=== PATIENT | male | born 1950 | race Caucasian/White ===

== ENCOUNTER 2025-02-02 03:37 | Inpatient (IN) | payer OTHER, SELFPAY ==
[2025-02-01 21:37] VITALS: BP 127/84
[2025-02-01 21:55] LABS: Hematocrit 44.6 % (39.0-52.0); Hemoglobin 16.1 g/dL (13.0-18.0); Mean Corp Hgb Conc. 36.1 g/dL (33.0-37.0); Mean Corpuscular Volume 91.6 fL (80.0-94.0); Nucleated Red Blood Cells % 0 % (-); Platelet Count 195 10^3/uL (130-400); Red Cell Dist. Width 11.9 % (11.5-14.5)
[2025-02-01 22:14] VITALS: BP 138/79; BMI 27.0
[2025-02-01 22:14] LABS: AST (SGOT) 47 U/L (17-59); Albumin 4.8 g/dl (3.5-5.0); Blood Urea Nitrogen 18 mg/dl (9-20); Carbon Dioxide 30 mmol/L (22-30); Glucose 113 mg/dl (70-99); Total Protein 7.7 g/dl (6.3-8.2); eGFR 57.65
[2025-02-01] MEDS: NSS 1000 IV (22:25)
[2025-02-01] MEDS: ZOFRAN 4 MG IV (22:27)
[2025-02-01] MEDS: DILAUDID 0.5 MG IV (22:27)
[2025-02-01 22:36] VITALS: BP 140/85
[2025-02-01 22:50] LABS: ALT (SGPT) 55 U/L (0-50); Alkaline Phosphatase 91 U/L (38-126); Chloride 106 mmol/L (98-107); Potassium 4.5 mmol/L (3.5-5.1); Sodium 139 mmol/L (135-145)
[2025-02-01 23:11] LABS: Calcium 9.8 mg/dl (8.4-10.2)
--- NOTE | 2025-02-01 23:14 | ED.GENMED ---
History of Present Illness
General
Chief Complaint: Abdominal Pain
Source: patient, spouse and previous hospital records (Hospitalization May 2020 for acute small bowel obstruction)
Exam Limitations: none
Time Seen by Provider: 02/01/25 22:00
Nursing documentation reviewed up to this point in time: agreed with
History of Present Illness
History of Present Illness:
This is a 74-year-old gentleman who resides at home with his . He has history of Crohn's disease with remote history of small bowel resection. He has prior history of small bowel obstructions perhaps 5 times in the past with previous
hospitalization here May 2020 for small bowel obstruction and most recently May 2024 while vacationing near [facility]. Thus far, small bowel obstructions resolve with NG tube, bowel rest, IV fluids and pain medication.
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 Unfortunately he ate nuts earlier today and developed generalized mid abdominal crampy pain around 12 noon today which has progressed
throughout the day, worsening with onset of nausea, dry heaves. Symptoms are quite similar to previous small bowel obstructions. Patient states he has had previous success with resolution of bowel obstructions by maintaining bowel rest and staying
at home but pain worsened throughout the day today despite home measures. He has not had a fever nor chills. He has been nauseous, dry heaves but no vomiting.
Last bowel movement was early this morning. He has not been passing gas. He denies chest pain or cough no shortness of breath.
Tonight he began to feel lightheaded, diaphoretic with near syncope shortly after arrival to the ED.
He had been maintained on Imuran for Crohn's disease but this was discontinued 1 year ago due to neutropenia. Thus far he has had no recurrence of Crohn's colitis.
Past History
Past History
ED Past Medical History: HTN, Other (Crohn's, small bowel obstruction, hepatitis, anemia, anxiety disorder) and Other (SVT)
ED Past Surgical History: Bowel resection (Small bowel resection), Cardiac and Orthopedic
Social History
Tobacco: Former smoker
Alcohol: Occasional
Drug: None
Personal:
Living: with family
Employment: Retired
Family History
Family History: Other (Noncontributory)
Phy Exam
Physical Exam
Physical Exam:
GENERAL: 74-year-old gentleman appears his stated age, awake and alert, oriented x 3, appears in moderate distress related to pain. Patient wheeled somewhat urgently into exam room 9 due to diaphoresis, near syncope and initially noted to be
moderately pale, moderately diaphoretic. Pallor and diaphoresis quickly improved with repositioning to supine. Patient remained conscious and alert.
EYE: pupils equal and reactive. anicteric
NECK: Supple, nontender, no meningismus, no significant adenopathy.
ENT: posterior pharynx is clear, oral mucosa is minimally dry. TM clear b/l, nares patent.
CARDIAC: Regular rate and rhythm. no murmur.
LUNGS: Clear breath sounds bilaterally, no acute respiratory distress, no wheezes/rales/rhonchi
ABDOMEN: Soft, mildly distended, mild to moderate generalized tenderness throughout the abdomen with moderately hypoactive bowel sounds with few scattered high-pitched tinkling bowel sounds noted. No r/g, no cvat. No palpable masses.
NEUROLOGICAL: Alert and oriented x3, no focal neuro deficits.
SKIN: Mildly diaphoretic, cool, mildly pale, skin intact. No rash.
MUSCULOSKELETAL: No C/C/E. peripheral pulses are full and equal b/l. No palpable tenderness.
PSYCH: Normal and appropriate interaction.
Course
Orders/Labs/Results
Orders:
Orders
02/01/25 21:46
Complete Blood Count/With Diff Urgent
Comprehensive Metabolic Panel Urgent
Lipase Urgent
02/01/25 22:16
Electrocardiogram (*1) Urgent
Reason for Study: Abdominal Pain
CT Abd/pelvis W Iv Cont Urgent
Comment:
Reason For Exam: severe abd pain, N-hx SBO, hx crohn's hx SB resect
EKG- Treatment ONCE
0.9% Sodium Chloride 1000 ml [Nss] 1,000 ml IV BOLUS
HYDROmorphone [Dilaudid] 0.5 mg IV NOW STA
Ondansetron Injectable [Zofran] 4 mg IV NOW STA
02/01/25 22:25
Lactic Acid Urgent
02/01/25 23:15
0.9% Sodium Chloride 1000 ml [Nss] 1,000 ml IV BOLUS
02/01/25 23:16
GI tube insertion- Treatment ONCE
02/02/25 01:45
HYDROmorphone [Dilaudid] 0.5 mg IV NOW STA
02/02/25 01:46
0.9% Sodium Chloride 1000 ml [Nss] 1,000 ml IV 250 mls/hr
HYDROmorphone [Dilaudid] 0.5 mg .ROUTE .STK-MED ONE
02/02/25 01:52
Ondansetron Injectable [Zofran] 4 mg .ROUTE .STK-MED ONE
Ondansetron Injectable [Zofran] 4 mg IV NOW STA
02/02/25 02:30
Lactic Acid Urgent
Abnormal Lab Results
02/01/25 02/01/25
21:46 22:25
WBC 11.3 H 10^3/uL
(4.8-10.8)
MCH 33.1 H pg
(27.0-31.0)
Absolute Neuts (auto) 9.2 H 10^3/uL
(1.4-6.5)
Neutrophils % 80.9 H %
(42.2-75.2)
Lymphocytes % 12.3 L %
(20.5-51.1)
Glucose 113 H mg/dl
(70-99)
Lactic Acid 2.1 H mmol/L
(0.7-2.0)
ALT 55 H U/L
(0-50)
02/01/25 21:46
02/01/25 21:46
Vital Signs
Initial and Last Documented VS:
Initial Vital Signs
Temp Pulse Resp BP Pulse Ox
98.4 F 95 22 127/84 99
02/01/25 21:37 02/01/25 21:37 02/01/25 21:37 02/01/25 21:37 02/01/25 21:37
Last Documented Vital Signs
Temp Pulse Resp BP Pulse Ox
97.6 F 55 12 135/84 97
02/01/25 22:14 02/01/25 22:45 02/01/25 22:45 02/02/25 01:00 02/02/25 01:15
MDM/Problems Addressed
Differential Diagnosis Includes:
Significant concern for recurrent small bowel obstruction, other consideration is exacerbation of Crohn's disease. Less likely renal colic/ureteric stone, AAA�patient denies back/denies flank pain.
He has had no chest pain or shortness of breath, cardiac arrhythmia is also a consideration.
Will medicate for pain and nausea, initiate IV fluids.
Labs thus far reveal mildly elevated white blood cell count of 11.3. Chemistries are pending. Will check lactic acid to assess for potential ischemic bowel.
Will check EKG as well as CT abdomen pelvis with IV contrast.
Chronic conditions affecting care: HTN, Previous abdomnial surgery and Other (Crohn's disease)
Acute Exacerbation and/or Progression of Chronic Illness: Previous abdomnial surgery (Recurrent high-grade small bowel obstruction. Transition point at prior anastomosis site)
*Radiology
Radiology exam reviewed: radiology read reviewed (CAT scan shows high-grade small bowel obstruction with markedly dilated proximal to mid small bowel with a very focal transition point occurring at prior anastomosis site. No free air nor
pneumatosis.)
*Pulse Oximetry
SaO2: 99
Oxygen Mode of Delivery: Room air
Patient hypoxic: no
*EKG
Interpreted by ED Provider?: Yes
Interpretation: normal
Comparison EKG: no changes (Similar to previous October 2010 save for heart rate has decreased from 67 to now 57)
Rate: bradycardiac
Rhythm: sinus
[place]: normal axis
Interval: normal interval
QRS Pattern: normal QRS
Ischemia: no ischemia
*Recep Interpretation
Rate: normal
Interpretation: normal
Rhythm: sinus
*Critical Care Note
Total Time (30-74mins, 75-104mins- exclusive of procedures): Not Applicable
Update Note
Update Note:
23:30
Patient is much more comfortable after an IV dose of Dilaudid and Zofran.
Resting comfortably. Remained hemodynamically stable. No further diaphoresis.
Lactic acid mildly elevated 2.1.
CAT scan shows high-grade small bowel obstruction with markedly dilated mid to proximal small bowel with transition point at enteroenteric anastomosis site.
Will plan for NG tube to low intermittent suction.
Continue IV fluid resuscitation and continue pain medication as needed.
Will admit to hospitalist service. Consider general surgery consult especially if small bowel obstruction does not resolve spontaneously. Reassuring that patient is already much more comfortable and as previously stated has done well with
conservative measures, NG tube.
ED Attending Note
-
Portions of this chart may have been created with voice recognition software.� Occasional wrong word or��sound alike� substitutions may have occurred due to the inherent limitations of voice recognition software.
Discharge Plan
Departure
Patient Disposition: Admit
Date of Disposition: 02/01/25
Time of Disposition: 23:42
Admit to: Med/Surg
Admit to doctor: Geovany
Presentation/result/management discussed w/ accepting MD/DO: Hospitalist
Discharge Problem:
Recurrent high-grade small bowel obstruc, Crohn's disease in remission
Prescriptions:
No Action
cyanocobalamin (vitamin B-12) [Vitamin B-12] 1,000 MCG tablet
1,000 mcg PO HS
atorvastatin 10 MG tablet
10 mg PO HS
finasteride 5 MG tablet
5 mg PO HS
lisinopril 5 MG tablet
5 mg PO HS
latanoprost 0.005 % Drops
1 drp BOTH EYES HS
acetaminophen [Tylenol] 325 mg Tablet
325 mg PO BIDPRN PRN (Reason: mild pain)
polyethylene glycol 3350 [Miralax] 17 gram Powder In Packet
17 g PO DAILYPRN PRN (Reason: constipation)
allopurinol 100 mg Tablet
100 mg PO HS
docusate sodium [Colace] 100 mg Capsule
100 mg PO HSPRN PRN (Reason: constipation)
folic acid 800 mcg Tablet
0.8 mg PO HS
Tums
1 tab PO DAILYPRN PRN (Reason: gerd)
Referrals:
Evens Smith MD [Family Provider, Internal Medicine]
Interventions
Interventions:
*Risk Screen - Suicide Last Done: 02/01/25 21:37
*General Assessment Last Done: 02/01/25 21:37
*Neglect/Abuse Screening Last Done: 02/01/25 21:37
*ED COVID-19 Vaccine History Last Done: 02/01/25 21:37
[facility] Assessment Last Done: 02/01/25 22:14
Discharge Date and Time
Print Language: CZECH
[2025-02-01 23:28] LABS: Lipase 122 U/L (23-300)
[2025-02-01 23:47] VITALS: BP 129/74
[2025-02-02] VITALS: BP 132/76
[2025-02-02] MEDS: NSS 1000 IV ×4 (00:16→15:39)
[2025-02-02 01:00] VITALS: BP 135/84
[2025-02-02] MEDS: DILAUDID 0.5 MG IV ×2 (01:47→20:56)
[2025-02-02] MEDS: ZOFRAN 4 MG IV ×2 (01:52→20:56)
--- NOTE | 2025-02-02 02:18 | PTCARENOTE ---
Pt c/o severe abdominal pain and nausea. Medicated with ordered dilaudid. Pt vomited aggressively, end of NGT coming out of Pt's mouth. Tube removed. made aware. NGT reinserted in R nare. Pt states 'the nausea and pain are better'. vss.
at the bedside.
--- NOTE | 2025-02-02 03:17 | HPS.HSE ---
Family Physician
-
Family Physician: Evens Smtih
Chief Complaint
-
Abdominal Pain
History of Present Illness
Patient is a 74y M with PMH significant for Crohn's s/p bowel resection and recurrent SBO who presents to ED complaining of abdominal pain. Patient states that his symptoms started this afternoon and have been steadily progressive since that
time. He denies any N/V. He has not passed any flatus. His pain increased throughout the evening and he presented to the ED for further evaluation. In the waiting room, he felt clammy and diaphoretic.
Patient has had multiple prior SBO episodes. His most recent was about 18 months ago. He states that he has never required surgical intervention fro an SBO in the past.
He had prior bowel resection for Crohn's and has known anastomotic stricture.
Medical History
Past Medical History
Past Medical History: Reports Other
Additional Past Medical History:
Crohn's Disease
Recurrent SBO
Gout
CKD III
SVT
BPH
Hypertension
Past Surgical History: Reports Other
Additional Past Surgical History:
Small Bowel Resections for Crohn's Disease
SVT Ablation
Left Trigger Finger Surgery (3 weeks ago)
Social History
Tobacco: Non-smoker
Alcohol: Occasional
Drug: None
Family History
Family History: Not pertinent
Allergies / Home Medications
Allergies reflects when Allergies were last updated in [employer].
Home Medications with original date entered in [employer]
Allergy/Medication List:
Allergies
Allergy/AdvReac Type Severity Reaction Status Date / Time
No Known Drug Allergies Allergy Unknown Verified 05/16/21 14:15
Home Medications
cyanocobalamin (vitamin B-12) 1,000 mcg tablet (Vitamin B-12) 1,000 mcg PO HS Supplement 10/29/10
atorvastatin 10 mg tablet 10 mg PO HS High cholesterol 10/18/19
finasteride 5 mg tablet 5 mg PO HS prostate 10/18/19
lisinopril 5 mg tablet 5 mg PO HS Blood pressure 06/13/20
Tums 1 tab PO DAILYPRN PRN gerd 02/01/25
acetaminophen 325 mg tablet (Tylenol) 325 mg PO BIDPRN PRN mild pain 02/01/25
allopurinol 100 mg tablet 100 mg PO HS 02/01/25
docusate sodium 100 mg capsule (Colace) 100 mg PO HSPRN PRN constipation 02/01/25
folic acid 800 mcg tablet 0.8 mg PO HS 02/01/25
latanoprost 0.005 % eye drops 1 drp BOTH EYES HS 02/01/25
polyethylene glycol 3350 17 gram oral powder packet (Miralax) 17 g PO DAILYPRN PRN constipation 02/01/25
Review of Systems
-
History Source: Patient
A 12 point ROS was completed and negative except as noted: Yes
Constitutional: Denies Fever or Chills
Respiratory: Denies Cough or Trouble Breathing
Cardiac: Denies Chest Pain or Palpitations
Abdomen/GI: Reports Abdominal Pain; Denies Nausea, Vomiting or Diarrhea
: Denies Dysuria or Flank Pain
Neurological: Denies Dizzy or Headache
Psych: Denies Depression or Anxiety
Physical Exam
Vital Signs
Vital Signs
Temp Pulse Resp BP Pulse Ox
97.6 F 55 12 135/84 97
02/01/25 22:14 02/01/25 22:45 02/01/25 22:45 02/02/25 01:00 02/02/25 01:15
Physical Exam
General: Other (74y M in mild distress due to abdominal pain.)
HEENT: Moist mucous membranes, PERRLA and Other (NG in place draining yellow / bilious fluid.)
Respiratory: Clear; No Wheezes, Rales or Rhonchi
Cardiac: S1/S2 and Regular Rhythm; No Murmur
GI: Other (Abdomen distended. Bowel sounds are diminished. Mild tenderness in the RLQ without rebound / guarding.)
Musculoskeletal: No Clubbing, No Cyanosis and No Edema
Neuro: AO x 3
Laboratory Results
-
02/01/25 21:46
02/01/25 21:46
Laboratory Results
Lactic Acid 1.3 mmol/L (0.7-2.0) 02/02/25 02:30
Total Bilirubin 1.1 mg/dl (0.2-1.3) 02/01/25 21:46
AST 47 U/L (17-59) 02/01/25 21:46
ALT 55 U/L (0-50) H 02/01/25 21:46
Alkaline Phosphatase 91 U/L (38-126) 02/01/25 21:46
Lipase 122 U/L (23-300) 02/01/25 21:46
Impression/Plan
-
A/P: Patient is a 74y M with PMH significant for Crohn's disease and recurrent SBO who presents to ED complaining of abdominal pain.
SBO
- Admit for further evaluation and treatment.
- Continue NG decompression.
- Pain control, IVFs, NPO, etc.
- Surgery evaluation for additional recommendations.
- Follow for passage of flatus, BM, clinical improvement.
Benign Hypertension
- PO meds on hold acutely.
CKD III
- Stable. Renal function is at / near known baseline.
- IVFs overnight. Follow for changes.
DVT Prophylaxis: Lovenox
Code Status: Full
[2025-02-02 04:42] VITALS: BP 138/86; BMI 27.9
[2025-02-02 06:07] LABS: Hematocrit 39.1 % (39.0-52.0); Hemoglobin 13.9 g/dL (13.0-18.0); Mean Corp Hgb Conc. 35.5 g/dL (33.0-37.0); Mean Corpuscular Volume 92.7 fL (80.0-94.0); Platelet Count 157 10^3/uL (130-400); Red Cell Dist. Width 12.1 % (11.5-14.5)
[2025-02-02 06:41] LABS: Blood Urea Nitrogen 18 mg/dl (9-20); Calcium 8.1 mg/dl (8.4-10.2); Carbon Dioxide 27 mmol/L (22-30); Chloride 107 mmol/L (98-107); Estimated Creatinine Clearance 63 ml/min; Glucose 124 mg/dl (70-99); Potassium 4.9 mmol/L (3.5-5.1); Sodium 138 mmol/L (135-145); eGFR > 60.00
[2025-02-02 07:00] VITALS: BP 119/68
--- NOTE | 2025-02-02 08:10 | PTCARENOTE ---
Patient returned from bathroom and accidentally pulled out NGT. NGT left out at present until physician rounds on patient. Patient was instructed to call for nausea, vomiting or pain. Patient has hypo bowel sounds and passed a small amount of flatus.
--- NOTE | 2025-02-02 09:05 | CON.GS ---
Addendum entered and electronically signed by Maciel Gill MD 02/02/25 09:48:
Patient seen and examined.
Patient is a 74 yo M with PMH notable for Crohn's disease s/p exploratory laparotomy with SBR years ago who presents with recurrent abdominal pain and bloating. Mr. May reports eating a chicken salad and walnuts as well as a salad over the
weekend. Yesterday he developed increased abdominal distention and crampy abdominal pain. Associated nausea and emesis of clear fluid. No fevers or chills. He was evaluated in the ER where a NGT was placed with significant improvement and
resolution of his symptoms. This morning his NGT fell out. He reports passing flatus, no BM since admission. He reports having episodes of a SBO every 1 to 2 years. He was last evaluated at back in 2019 and managed medically. He has had
prior discussions with his GI physician here at reviewing surgical and endoscopic options.
Gen: NAD
Abd: soft, NT, mild distension, non-peritoneal, midline incision well healed
Labs and CT scan were reviewed.
Patient is a 74 yo M p/w recurrent SBO at the level of his prior anastomosis likely related to stricturing combined with dietary indiscretion
Natural history and pathophysiology of bowel obstructions was reviewed. CT scan imaging as relates to his obstruction was reviewed. Options for management including medical, endoscopic, and surgical management were reviewed. Patient is well
versed in the above. He states that he is improving and would like to trial clear liquids. All questions answered.
-- Trial of clears
-- OOB/ambulate
-- Minimize narcotics, correct lytes
Original Note:
Medical History
-
History of Present Illness:
74yoM PMH Crohns s/p bowel resection and recurrent SBOs with known anastomotic stricture presenting with severe abdominal pain and bloating. Pt reports eating chicken salad over the weekend into Saturday with walnuts, a known trigger for him, and
began feeling distended with intense pain Saturday evening. He has had repeated SBOs since his bowel resection 15 years ago with the last one in [facility] in 05/2024. He is familiar with the symptoms and recognized the feelings he had Saturday were
indicative of an SBO, prompting his presentation to the ED yesterday. He was last here for an SBO in 2019. He reports usual relief after NG placement.
This morning, he reports feeling better with the NG in place with resolution of distention and pain. Denies nausea or vomiting. Reports passing gas but no BM.
Past Medical History
Past Medical History: Other (Crohns s/p bowel resection)
Past Surgical History: Bowel Resection
Allergies / Home Medications
Allergy/AdvReac Type Severity Reaction Status Date / Time
No Known Drug Allergies Allergy Unknown Verified 05/16/21 14:15
�Medication �Instructions �Recorded �Confirmed �Type
cyanocobalamin (vitamin B-12) 1,000 mcg PO HS Supplement 10/29/10 02/01/25 History
1,000 mcg tablet (Vitamin B-12)
atorvastatin 10 mg tablet 10 mg PO HS High cholesterol 10/18/19 02/01/25 History
finasteride 5 mg tablet 5 mg PO HS prostate 10/18/19 02/01/25 History
lisinopril 5 mg tablet 5 mg PO HS Blood pressure 06/13/20 02/01/25 History
Tums 1 tab PO DAILYPRN PRN gerd 02/01/25 02/01/25 History
acetaminophen 325 mg tablet 325 mg PO BIDPRN PRN mild pain 02/01/25 02/01/25 History
(Tylenol)
allopurinol 100 mg tablet 100 mg PO HS 02/01/25 02/01/25 History
docusate sodium 100 mg capsule 100 mg PO HSPRN PRN constipation 02/01/25 02/01/25 History
(Colace)
folic acid 800 mcg tablet 0.8 mg PO HS 02/01/25 02/01/25 History
latanoprost 0.005 % eye drops 1 drp BOTH EYES HS 02/01/25 02/01/25 History
polyethylene glycol 3350 17 gram 17 g PO DAILYPRN PRN constipation 02/01/25 02/01/25 History
oral powder packet (Miralax)
Review of Systems
-
A 10 point review of systems was completed, and was negative except as per HPI.
Physical Exam
Vital Signs
Temp Pulse Resp BP Pulse Ox
98.4 F 81 20 119/68 95
02/02/25 07:00 02/02/25 07:00 02/02/25 07:00 02/02/25 07:00 02/02/25 07:00
02/01/25 02/02/25 02/03/25
06:59 06:59 06:59
Actual Weight 98.43 kg
Body Mass Index (BMI) 27.9
Lab Results
02/02/25 05:16
02/02/25 05:16
WBC 9.1 10^3/uL (4.8-10.8) 02/02/25 05:16
Hgb 13.9 g/dL (13.0-18.0) 02/02/25 05:16
Hct 39.1 % (39.0-52.0) 02/02/25 05:16
Plt Count 157 10^3/uL (130-400) 02/02/25 05:16
Abs Immat Gran (auto) 0.0 10^3/uL (0-0.05) 02/01/25 21:46
Neutrophils % 80.9 % (42.2-75.2) H 02/01/25 21:46
Physical Exam
General: No Apparent Distress and Comfortable
HEENT: Normocephalic and Anicteric
Respiratory: Non Labored Respirations
Cardiac: Regular Rhythm
GI: Soft, Non Tender and Non Distended
Skin: Warm and Dry
Neuro: AO x 3 and Nonfocal/Grossly Intact
Psych: Calm
Assessment / Plan
-
74yoM PMH Crohns s/p bowel resection and recurrent SBO with known anastomotic stricture presenting with SBO at anastomosis on CT. Ng tube fell out as the patient went to the restroom this morning. Due to resolution of symptoms and patient
familiarity with prior episodes that have resolved with NG decompression, we will trial clear liquids. If clears are tolerated well, we can consider advancing diet to full liquids later today.
We discussed with patient options to address stricture and possibly reduce recurrences of obstructions. He expressed disinterest, as he has already discussed with his tunneller prognosis of endoscopy or surgical revisions. Pt has thorough
understanding of situation and declined further surgical intervention in the future.
Plan:
Trial clears. Consider full liquids.
Monitor for nausea, vomiting, pain, or distention.
Possible d/c today or tomorrow pending PO tolerance.
[2025-02-02] MEDS: NSS (PRESERVATIVE FREE) 10 ML IV (10:37)
[2025-02-02] MEDS: PROTONIX IV 40 MG IV (10:37)
--- NOTE | 2025-02-02 10:53 | W.PN.UPDATE ---
Update Note
Progress Note Update
Seen and examined independent of overnight physician. States feeling significantly better compared to yesterday. States of passing some flatulence.
General: in NAD
HEENT: Moist mucous membranes
Respiratory: Clear; No Wheezes, Rales or Rhonchi
Cardiac: S1/S2 and Regular Rhythm; No Murmur
GI: Abdomen distended. Bowel sounds are diminished. Mild tenderness in the RLQ without rebound / guarding.)
Musculoskeletal: No Clubbing, No Cyanosis and No Edema
Neuro: AO x 3
A/P: Patient is a 74y M with PMH significant for Crohn's disease and recurrent SBO who presents to ED complaining of abdominal pain.
Small bowel obstruction
Crohn's disease status post history of small bowel resection
- NG tube out. Can reinsert if needed. Monitor symptoms closely.
- Pain control, IVFs, NPO, etc.
- Surgery evaluation for additional recommendations. Per surgery trials of clears out of bed and ambulate.
- Follow for passage of flatus, BM, clinical improvement.
Benign Hypertension
- PO meds on hold acutely.
CKD III
- Stable. Renal function is at / near known baseline.
- IVFs overnight. Follow for changes.
DVT Prophylaxis: Lovenox
Code Status: Full
--- NOTE | 2025-02-02 14:49 | PTCARENOTE ---
Patient ambulating in halls with a steady gait. Patient tolerated clear liquid diet, no c/o nausea or pain. Spouse at bedside.
[2025-02-02 15:00] VITALS: BP 139/80
--- NOTE | 2025-02-02 16:21 | CM ---
CM met with pt bedside
Pt resides with his spouse in a 2SH with 2STE, full flight to 2nd floor
Pt is indep with his ADLs, drives+, denies use of DMEs
Has a WW, SPC, WC and stairglide from [facility] when she previously resides with them
Pt denies financial insecurities
PCP- Evens Smith
Rx- [facility]
CM has observed pt indep ambulating in hallway
No dc needs anticipated
Discharge Disposition- home, no needs anticipated
[2025-02-02] MEDS: LOVENOX 40 MG SC (18:27)
[2025-02-02 23:10] VITALS: BP 116/67
[2025-02-03] MEDS: NSS 1000 IV (01:36)
[2025-02-03 05:58] VITALS: BMI 27.6
[2025-02-03 07:00] VITALS: BP 116/64
--- NOTE | 2025-02-03 07:26 | W.PN.GS2 ---
Addendum entered and electronically signed by Fran Diaz MD 02/03/25 10:41:
I saw and examined the patient.
The resident's note was reviewed and I agree with the note.
Comment: Improving. Favian FLD. Passing flatus and BM. Denies n/v. abd exam benign. Plan for DC home and diet advancement on his own. Dietary education provided. He is very familiar with the management plan.
Original Note:
Today's Communication / Plan
-
Plan reviewed with attending.
Assessment / Plan
-
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 Initial presenting symptoms of pain and bloating have resolved. Pt is well versed with low residue diet to reintroduce.
Plan: SBO resovled. Slowly advance diet from full liquids. He can be discharged from a surgical standpoint and manage diet at home.
Subjective Data
-
Date of Service: February 03, 2025
This morning, Mr. May reports feeling well. He had 2 BM overnight and continues to pass gas. He reports tolerating full liquids last night for dinner with mild cramping at around 9pm resolved with pain regimen. He feels comfortable going home
managing a liquid diet and slowly reintroducing regular diet.
Objective Data
-
Intake and Output
02/02/25 02/03/25 02/04/25
06:59 06:59 06:59
Intake Total 1796 / 1796 3310 / 3310
Output Total 300 / 300
Balance 1496 / 1496 3310 / 3310
Intake:
Oral fluids 240 / 240 1140 / 1140
IV fluids (Total) 774 / 774 2170 / 2170
IV piggybacks 782 / 782 0 / 0
Output:
Gastrointestinal tube output ( 300 / 300
Total)
Boone Sump 100 / 100
Other:
Number of approximated MODERATE 2 10
amounts of urine
Number of unmeasured liquid
stools
Rectum 1
Vital Signs
Temp Pulse Resp BP Pulse Ox
98.4 F 73 20 116/67 95
02/02/25 23:10 02/02/25 23:10 02/02/25 23:10 02/02/25 23:10 02/02/25 23:10
Calcium 8.1 mg/dl (8.4-10.2) L D 02/02/25 05:16
Total Bilirubin 1.1 mg/dl (0.2-1.3) 02/01/25 21:46
AST 47 U/L (17-59) 02/01/25 21:46
ALT 55 U/L (0-50) H 02/01/25 21:46
Alkaline Phosphatase 91 U/L (38-126) 02/01/25 21:46
Total Protein 7.7 g/dl (6.3-8.2) 02/01/25 21:46
Albumin 4.8 g/dl (3.5-5.0) 02/01/25 21:46
Physical Exam
-
General: No Apparent Distress, Comfortable in bed
HEENT: Normocephalic and Anicteric
Respiratory: Non Labored Respirations
Cardiac: Regular Rhythm
GI: Soft, Non Tender, and Non Distended. Midline incision well healed.
Skin: Warm and Dry
Neuro: AO x 3 and Nonfocal/Grossly Intact
Psych: Calm
[2025-02-03 07:37] LABS: Hematocrit 34.4 % (39.0-52.0); Hemoglobin 12.1 g/dL (13.0-18.0); Mean Corp Hgb Conc. 35.2 g/dL (33.0-37.0); Mean Corpuscular Volume 93.5 fL (80.0-94.0); Nucleated Red Blood Cells % 0 % (-); Platelet Count 135 10^3/uL (130-400); Red Cell Dist. Width 12.4 % (11.5-14.5)
[2025-02-03 08:05] LABS: Blood Urea Nitrogen 12 mg/dl (9-20); Calcium 7.9 mg/dl (8.4-10.2); Carbon Dioxide 26 mmol/L (22-30); Chloride 111 mmol/L (98-107); Estimated Creatinine Clearance 63 ml/min; Glucose 97 mg/dl (70-99); Magnesium 2.1 mg/dl (1.6-2.3); Potassium 4.4 mmol/L (3.5-5.1); Sodium 136 mmol/L (135-145); eGFR > 60.00
[2025-02-03] MEDS: PROTONIX IV 40 MG IV (08:24)
[2025-02-03] MEDS: NSS (PRESERVATIVE FREE) 10 ML IV (08:24)
--- NOTE | 2025-02-03 09:42 | W.PN.HOSP.TC ---
Today's Communication/Plan
-
dc home
restart home meds
advance diet
Assessment / Plan
Assessment / Plan
General: in NAD
HEENT: Moist mucous membranes
Respiratory: Clear; No Wheezes, Rales or Rhonchi
Cardiac: S1/S2 and Regular Rhythm; No Murmur
GI: Abdomen distended. Bowel sounds are diminished. Mild tenderness in the RLQ without rebound / guarding.)
Musculoskeletal: No Clubbing, No Cyanosis and No Edema
Neuro: AO x 3
A/P: Patient is a 74y M with PMH significant for Crohn's disease and recurrent SBO who presents to ED complaining of abdominal pain.
Small bowel obstruction
Crohn's disease status post history of small bowel resection
- NG tube out. Can reinsert if needed. Monitor symptoms closely.
- having bm. tolerating liquids. Per surgery-pt can be dced. pt knows to advanced diet slowly. No abd pain, nausea or vomiting. comfortable.
Benign Hypertension
- PO meds
CKD III
- Stable. Renal function is at / near known baseline.
DVT Prophylaxis: Lovenox
Code Status: Full
More than 30 minutes spent in discharge including
Final examination of the patient
Summarizing hospital stay
Instructions for continuing care to all relevant caregivers
Preparation of discharge records, prescriptions, and referral forms
Total time spent (in minutes): 52
Anticipated Discharge: Today
Subjective/Interval History
-
Date of Service: February 03, 2025
tolerating liquids
had 2 bm yesterday
Objective Data
-
Labs:
Laboratory Results
02/03/25
06:50
WBC 3.1 L
Hgb 12.1 L
Hct 34.4 L
Plt Count 135
Sodium 136
Potassium 4.4
Chloride 111 H
Carbon Dioxide 26
BUN 12
Creatinine 1.2
Glucose 97
Calcium 7.9 L
Vital Signs:
Vital Signs
Temp Pulse Resp BP Pulse Ox
97.5 F 63 24 116/64 96
02/03/25 07:00 02/03/25 07:00 02/03/25 07:00 02/03/25 07:00 02/03/25 07:00
I&O
02/02/25 02/03/25 02/04/25
06:59 06:59 06:59
Intake Total 1796 / 1796 3310 / 3310
Output Total 300 / 300
Balance 1496 / 1496 3310 / 3310
--- NOTE | 2025-02-03 09:44 | W.DCSUMMARY ---
Discharge Summary
Discharge Data
Date of Admission: 02/02/25
Date of Discharge: 02/03/25
-
Pending Results: No
Hospital Course
74y M with PMH significant for Crohn's disease and recurrent SBO who presents to ED complaining of abdominal pain. Patient underwent CT abdomen pelvis which showed High-grade small bowel obstruction, small bowel measuring up to 5.3 cm in
diameter. Transition zone at the enteroenteric anastomosis, best appreciated on coronal images 24-28. No evidence of pneumatosis intestinalis or extraluminal air. Benign hemangioma and small benign hepatic cysts within the liver. Patient had NG
tube placement with output. NG tube fall out. Patient started feeling better. General surgery evaluated patient. Patient started passing flatulence. Patient diet was advanced to clears. Patient started having bowel movements. Patient was
tolerating full liquid diet. Patient without any nausea, vomiting, nausea, abdominal pain and does patient was recommended to advance diet to low residue diet. Patient did not want to wait in the hospital anymore as he stated he has been through
this multiple times in the past. Per general surgery patient can be discharged home.
Portions of this chart may have been created with voice recognition software.� Occasional wrong word or �sound alike� substitutions may have occurred due to the inherent limitations of voice recognition software.
Discharge Plan
-
Patient Disposition: Home (Routine Discharge)
Discharge Diagnosis/Procedures: Small bowel obstruction
Condition: Fair
Diet: Low Residue
Activity: As tolerated
Driving Restrictions: As prior to admission
Referrals:
Evens Smith MD [Family Provider, Internal Medicine] - in less than 1 week
Prescriptions:
Continued
cyanocobalamin (vitamin B-12) [Vitamin B-12] 1,000 MCG tablet
1,000 mcg PO HS
atorvastatin 10 MG tablet
10 mg PO HS
finasteride 5 MG tablet
5 mg PO HS
lisinopril 5 MG tablet
5 mg PO HS
latanoprost 0.005 % Drops
1 drp BOTH EYES HS
acetaminophen [Tylenol] 325 mg Tablet
325 mg PO BIDPRN PRN (Reason: mild pain)
polyethylene glycol 3350 [Miralax] 17 gram Powder In Packet
17 g PO DAILYPRN PRN (Reason: constipation)
allopurinol 100 mg Tablet
100 mg PO HS
docusate sodium [Colace] 100 mg Capsule
100 mg PO HSPRN PRN (Reason: constipation)
folic acid 800 mcg Tablet
0.8 mg PO HS
Tums
1 tab PO DAILYPRN PRN (Reason: gerd)
Discharge Orders:
Discharge Patient (As Directed); Ordered 02/03/25
Ordered By: [place] Pichardo
Discharge Date and Time
Discharge Date/Time: 02/03/25 11:51
Print Language: HAITIAN
[2025-02-03 11:00] VITALS: BP 128/68
--- NOTE | 2025-02-03 11:08 | CM ---
CM reviewed chart, patient seen bedside, for discharge today. IMM verbally reviewed with patient, declined copy, placed in chart. Patient confirms will transport home. CM will continue to follow for all discharge planning needs.
Plan; home no needs
== END 2025-02-03 11:51 | disposition home or self-care (01) | DRG 387 ==
LOC: 2 NORTH 03:37
PROVIDERS: Emergency Medicine; ADMITTING PHYSICIAN Hospitalist; ATTENDING PHYSICIAN Hospitalist; CONSULT PHYSICIAN Surgery; EMERGENCY PHYSICIAN Emergency Medicine; FAMILY PHYSICIAN Internal Medicine
PROC: 0D9670Z Drainage of Stomach with Drainage Device, Via Natural or Artificial Opening (ICD-10-PCS; 2025-02-01)
DX: K50.012 Crohn's disease of small intestine with intestinal obstruction (principal); D64.9 Anemia, unspecified; F41.9 Anxiety disorder, unspecified; N18.30 Chronic kidney disease, stage 3 unspecified; D18.03 Hemangioma of intra-abdominal structures; K76.89 Other specified diseases of liver; N40.0 Benign prostatic hyperplasia without lower urinary tract symptoms; M10.9 Gout, unspecified; I12.9 Hypertensive chronic kidney disease with stage 1 through stage 4 chronic kidney disease, or unspecified chronic kidney disease; K75.9 Inflammatory liver disease, unspecified; Z90.49 Acquired absence of other specified parts of digestive tract; Z87.891 Personal history of nicotine dependence
CPT/HCPCS: 74177; 80048; 80053; 83605; 83690; 83735; 85025; 85027; 93005; 96361; 96374; 96375; 99285; 99406; Q9967

== ENCOUNTER 2025-04-17 03:06 | Inpatient (IN) | payer OTHER, SELFPAY ==
[2025-04-16 23:25] VITALS: BP 76/44
[2025-04-16 23:36] VITALS: BP 134/70
[2025-04-16 23:39] VITALS: BMI 26.9
--- NOTE | 2025-04-16 23:44 | ED.GENMED ---
History of Present Illness
General
Chief Complaint: Abdominal Pain
Source: patient and spouse
Time Seen by Provider: 04/16/25 23:35
History of Present Illness
History of Present Illness:
75-year-old male presents emergency department complaints of 'a tiny stomachache' that developed around lunchtime today that would wax and wane. The pain continued however and is now persistent and worse. It is localized to the periumbilical area
associated with a feeling of distention. There are no exacerbating relieving factors. He is nauseous with several episodes of nonbloody vomiting. He denies fever, chills, chest pain, shortness of breath, back pain. Last bowel movement was this
morning. He states his symptoms are very consistent with prior episodes of an SBO, he has a history of a small bowel resection, last SBO with a transition zone at the anastomotic site.
Past History
Past History
ED Past Medical History: HTN, Other (Crohn's, small bowel obstruction, hepatitis, anemia, anxiety disorder) and Other (SVT)
ED Past Surgical History: Bowel resection (Small bowel resection), Cardiac and Orthopedic
Social History
Tobacco: Former smoker
Alcohol: Occasional
Drug: None
Personal:
Living: with family
Employment: Retired
Family History
Family History: Other (Noncontributory)
Phy Exam
Physical Exam
Physical Exam:
GENERAL: Alert , in no apparent distress
EYE: pupils equal and reactive
NECK: Supple, no significant adenopathy.
ENT: o/p clr, mm dry
CARDIAC: Regular rate and rhythm .
LUNGS: Clear breath sounds bilaterally, no acute respiratory distress, no wheezes/rales/rhonchi
ABDOMEN: Soft, diffuse nonspecific, no r/g, no cvat, decreased bowel sounds noted
NEUROLOGICAL: Alert and oriented, no focal neuro deficits
SKIN: Warm and dry, skin intact.
MUSCULOSKELETAL: No edema, well perfused.
PSYCH: Normal and appropriate interaction.
Course
Orders/Labs/Results
Orders:
Orders
04/16/25 23:49
0.9% Sodium Chloride 1000 ml [Nss] 1,000 ml IV BOLUS
04/16/25 23:51
Cardiac Monitoring- Treatment ONCE
NG Tube [GI tube insertion- Treatment] ONCE
Complete Blood Count/No Diff Urgent
Comprehensive Metabolic Panel Urgent
Lactic Acid Urgent
Lipase Urgent
0.9% Sodium Chloride 1000 ml [Nss] 1,000 ml IV BOLUS
0.9% Sodium Chloride 500 ml [Nss] 500 ml IV BOLUS
HYDROmorphone [Dilaudid] 0.5 mg IV NOW STA
04/16/25 23:52
Electrocardiogram (*1) Urgent
Reason for Study: Abdominal Pain
EKG- Treatment ONCE
04/17/25 00:02
CT Abd/Pel (IV only)-DH only Urgent
Reason For Exam: hx sbo, now n/v/abd pain
04/17/25 01:29
HYDROmorphone [Dilaudid] 1 mg IV NOW STA
04/17/25 01:40
Ondansetron Injectable [Zofran] 4 mg IV NOW STA
04/17/25 01:46
Oxygen Therapy [O2 Therapy] [RESP] Urgent
Nasal Cannula Liter Flow: 2 LPM
Titrate/Wean O2 to maintain O2 sat greater than (%): 93
Contact provider if nasal cannula O2 requirement > 6 liters: Yes
Abnormal Lab Results
04/17/25
00:00
WBC 12.6 H 10^3/uL
(4.8-10.8)
MCH 33.6 H pg
(27.0-31.0)
Creatinine 1.7 H mg/dL
(0.7-1.3)
Glucose 150 H mg/dl
(70-99)
Total Bilirubin 1.5 H mg/dl
(0.2-1.3)
ALT 52 H U/L
(0-50)
04/17/25 00:00
04/17/25 00:00
Vital Signs
Initial and Last Documented VS:
Initial Vital Signs
Temp BP Pulse Ox
98.5 F 76/44 96
04/16/25 23:25 04/16/25 23:25 04/16/25 23:25
Last Documented Vital Signs
Temp Pulse Resp BP Pulse Ox
98.5 F 83 17 125/77 93
04/16/25 23:25 04/17/25 00:35 04/17/25 00:35 04/17/25 00:35 04/17/25 01:47
*Pulse Oximetry
SaO2: 96
Oxygen Mode of Delivery: Room air
Patient hypoxic: no
*Critical Care Note
Total Time (30-74mins, 75-104mins- exclusive of procedures): Not Applicable
Update Note
Update Note:
Patient presents to the Emergency Department with ____abdominal pain nausea vomiting
Number and Complexity of Problems Addressed at the Encounter
� Chronic conditions affecting care:
� Acute Exacerbation and/or Progression of Chronic Illness:
� Differential Diagnosis includes: But not limited to SBO, perforation, pancreatitis, cholecystitis, etc. etc.
Amount and/or Complexity of Data to be Reviewed and Analyzed
� I performed an independent evaluation of and my interpretation is:
EKG: Read by me, normal sinus rhythm, normal rate, normal axis, no acute ischemia
CT:dilated loops of sb up to 6 cm, with tx point at site of anastomosis, mod gastric distention.
Xrays:
Laboratory Studies: Mild leukocytosis likely stress response, otherwise generally unremarkable lab
Other:
� Review of other/old records reveals: Discharge summary from January 2025 reviewed in which time patient symptoms resolved with NG tube, n.p.o., IV fluids, etc.
� Clinical information was obtained by an independent historian: who is at bedside, provides medication list and further details
� Prescriptions/Medications Considered but not given:
� Further testing considered but not performed:
Risk of Complications and/or Morbidity or Mortality of Patient Management
� Social determinants of health affecting care:
� Discussion with other providers (PCP, Hospitalists, Consultants, etc):
� Escalation of care including admission/observation vs risk of discharge considered: CT consistent with expected diagnosis of SBO given history and exam here. Patient had NG tube placed consistent with over a liter of output.
He feels significantly better without any new symptoms, declines more pain medication at this time. Discussed with patient plan for admission, surgical consult in a.m., etc. Hospitalist aware
ED Attending Note
-
Portions of this chart may have been created with voice recognition software.� Occasional wrong word or��sound alike� substitutions may have occurred due to the inherent limitations of voice recognition software.
Discharge Plan
Departure
Patient Disposition: Admit
Date of Disposition: 04/17/25
Time of Disposition: 02:15
Admit to: Med/Surg
Presentation/result/management discussed w/ accepting MD/DO: Hospitalist
Discharge Problem:
Small bowel obstruction
Prescriptions:
No Action
cyanocobalamin (vitamin B-12) [Vitamin B-12] 1,000 MCG tablet
1,000 mcg PO HS
atorvastatin 10 MG tablet
10 mg PO HS
finasteride 5 MG tablet
5 mg PO HS
lisinopril 5 MG tablet
5 mg PO HS
latanoprost 0.005 % Drops
1 drp BOTH EYES HS
acetaminophen [Tylenol] 325 mg Tablet
325 mg PO BIDPRN PRN (Reason: mild pain)
polyethylene glycol 3350 [Miralax] 17 gram Powder In Packet
17 g PO DAILYPRN PRN (Reason: constipation)
allopurinol 100 mg Tablet
100 mg PO HS
docusate sodium [Colace] 100 mg Capsule
100 mg PO HSPRN PRN (Reason: constipation)
folic acid 800 mcg Tablet
0.8 mg PO HS
Tums
1 tab PO DAILYPRN PRN (Reason: gerd)
Interventions
Interventions:
*Risk Screen - Suicide Last Done: 04/16/25 23:25
*General Assessment Last Done: 04/16/25 23:38
*Neglect/Abuse Screening Last Done: 04/16/25 23:38
*ED- Fall Risk Assessment Last Done: 04/16/25 23:38
*ED COVID-19 Vaccine History Last Done: 04/16/25 23:38
CF-Dicsrn-Iwevjthdbk Assessment Last Done: 04/16/25 23:42
Discharge Date and Time
Print Language: FRENCH
[2025-04-16] MEDS: NSS 1000 IV (23:50)
[2025-04-16] MEDS: DILAUDID 0.5 MG IV (23:57)
[2025-04-17] VITALS (9 sets, daily range): BP systolic 111–159; BP diastolic 70–100; BMI 26.7
[2025-04-17 00:11] LABS: Hematocrit 45.8 % (39.0-52.0); Hemoglobin 16.9 g/dL (13.0-18.0); Mean Corp Hgb Conc. 36.9 g/dL (33.0-37.0); Mean Corpuscular Volume 91.1 fL (80.0-94.0); Platelet Count 195 10^3/uL (130-400); Red Cell Dist. Width 12.2 % (11.5-14.5)
[2025-04-17 00:31] LABS: ALT (SGPT) 52 U/L (0-50); AST (SGOT) 50 U/L (17-59); Albumin 5.0 g/dl (3.5-5.0); Alkaline Phosphatase 99 U/L (38-126); Blood Urea Nitrogen 20 mg/dl (9-20); Calcium 10.2 mg/dl (8.4-10.2); Carbon Dioxide 27 mmol/L (22-30); Chloride 99 mmol/L (98-107); Estimated Creatinine Clearance 44 ml/min; Glucose 150 mg/dl (70-99); Lipase 79 U/L (23-300); Potassium 4.7 mmol/L (3.5-5.1); Sodium 135 mmol/L (135-145); Total Protein 8.0 g/dl (6.3-8.2); eGFR 41.52
[2025-04-17] MEDS: NSS 500 IV (01:34)
[2025-04-17] MEDS: DILAUDID 1 MG IV (01:34)
[2025-04-17] MEDS: ZOFRAN 4 MG IV (01:42)
--- NOTE | 2025-04-17 02:26 | HPS.HSE ---
Family Physician
-
Family Physician:
Chief Complaint
-
Abdominal pain
History of Present Illness
This is an 75-year-old with past medical history significant for Crohn's disease in remission status post surgery, history of recurrent small bowel obstructions, BPH hyperlipidemia presenting to the emergency department with abdominal pain.
Patient reports frequent issues of small bowel obstruction with most recent admission to hospital in January and has had 8 prior episodes of bowel obstructions over the last 10 years. He reports has had about 3 this year now. He stated that he has
epigastric discomfort at around noon time which he felt was similar to his prior episodes. He then started having any nausea and increasing abdominal discomfort after dinner. He tried to vomit but only small amounts came out. As time went back
and the pain became unbearable and he felt it would not resolve on its own and he came to the emergency department.
Patient reports history of Crohn's that was treated with small bowel resection several years ago and since then he has has issues with small bowel obstruction at the enteroenteric anastomosis. He considered surgical repair but since he usually
tolerates conservative management of small bowel obstructions he put it off until now.
By time I saw the patient in the ED he has a small caliber NG tube which has drained over 1 L of bilious looking enteric contents. Patient reports feeling much more comfortable. He denies any nausea or abdominal pain at this time.
In the emergency department he was afebrile, blood pressure was 195/77 with a pulse rate of 83 and he was satting 98% on room air.
ECG shows a normal sinus rhythm at rate of 69. CBC shows a white count of 12.6 otherwise unremarkable. Electrolytes were stable. Creatinine was slightly increased to 1.7 from a baseline of around 1.2-1.4.
CT scan of the abdomen and pelvis with contrast showed dilated loops of small bowel measuring up to 6 cm with transition point at the site of anastomosis within the right lower quadrant concerning for small bowel obstruction.
Medical History
Past Medical History
Past Medical History: Reports Other
Additional Past Medical History:
Crohn's Disease
Recurrent SBO
Gout
CKD III
SVT
BPH
Hypertension
Past Surgical History: Reports Other
Additional Past Surgical History:
Small Bowel Resections for Crohn's Disease
SVT Ablation
Left Trigger Finger Surgery (3 weeks ago)
Social History
Tobacco: Non-smoker
Alcohol: Occasional
Drug: None
Family History
Family History: Not pertinent
Allergies / Home Medications
Allergies reflects when Allergies were last updated in [facility].
Home Medications with original date entered in [facility]
Allergy/Medication List:
Allergies
Allergy/AdvReac Type Severity Reaction Status Date / Time
No Known Drug Allergies Allergy Unknown Verified 05/16/21 14:15
Home Medications
cyanocobalamin (vitamin B-12) 1,000 mcg tablet (Vitamin B-12) 1,000 mcg PO HS Supplement 10/29/10
atorvastatin 10 mg tablet 10 mg PO HS High cholesterol 10/18/19
finasteride 5 mg tablet 5 mg PO HS prostate 10/18/19
lisinopril 5 mg tablet 5 mg PO HS Blood pressure 06/13/20
Tums 1 tab PO DAILYPRN PRN gerd 02/01/25
acetaminophen 325 mg tablet (Tylenol) 325 mg PO BIDPRN PRN mild pain 02/01/25
allopurinol 100 mg tablet 100 mg PO HS 02/01/25
docusate sodium 100 mg capsule (Colace) 100 mg PO HSPRN PRN constipation 02/01/25
folic acid 800 mcg tablet 0.8 mg PO HS 02/01/25
latanoprost 0.005 % eye drops 1 drp BOTH EYES HS 02/01/25
polyethylene glycol 3350 17 gram oral powder packet (Miralax) 17 g PO DAILYPRN PRN constipation 02/01/25
Review of Systems
-
History Source: Patient
A 12 point ROS was completed and negative except as noted: Yes
Constitutional: Denies Fever or Chills
Respiratory: Denies Cough or Trouble Breathing
Cardiac: Denies Chest Pain or Palpitations
Abdomen/GI: Reports Abdominal Pain; Denies Nausea, Vomiting or Diarrhea
: Denies Dysuria or Flank Pain
Musculoskeletal: Reports No Symptoms
Skin: Reports No Symptoms
Neurological: Denies Dizzy or Headache
Endocrine: Reports No Symptoms
Hematologic/Lymphatic: Reports No Symptoms
Psych: Denies Depression or Anxiety
Physical Exam
Vital Signs
Vital Signs
Temp Pulse Resp BP Pulse Ox
98.5 F 78 18 128/83 99
04/16/25 23:25 04/17/25 02:00 04/17/25 01:22 04/17/25 02:00 04/17/25 02:00
Physical Exam
General: Well Developed, Conversant and Other
HEENT: NormoCephalic, Moist mucous membranes, PERRLA and Other (NG tube draining bilious content)
Respiratory: Clear; No Wheezes, Rales or Rhonchi
Cardiac: S1/S2 and Regular Rhythm; No Murmur
GI: Soft, Non Tender, Non Distended and Normal Bowel Sounds (Slightly decreased)
Rectal: Deferred by Provider
Genito-urinary: Deferred by me
Musculoskeletal: No Clubbing, No Cyanosis and No Edema
Neuro: AO x 3
Laboratory Results
-
04/17/25 00:00
04/17/25 00:00
Laboratory Results
Lactic Acid 1.7 mmol/L (0.7-2.0) 04/17/25 00:00
Total Bilirubin 1.5 mg/dl (0.2-1.3) H 04/17/25 00:00
AST 50 U/L (17-59) 04/17/25 00:00
ALT 52 U/L (0-50) H 04/17/25 00:00
Alkaline Phosphatase 99 U/L (38-126) 04/17/25 00:00
Lipase 79 U/L (23-300) 04/17/25 00:00
Data Reviewed
-
CT Scan: Report Reviewed by me
Medical Tests (Nuc Med, Echo, EKG etc): Image Personally Visualized and interpreted
Lab Data: Labs Reviewed by me
Old Records: Reviewed
Impression/Plan
-
IMPRESSION:
75-year-old with history of Crohn's status post small bowel resection with subsequent recurrent episodes of small bowel obstruction secondary to scarring or stricture at the anastomotic site and usually medically managed who presents to the
emergency department again with abdominal pain and nausea and was found to have small bowel obstruction on CT scan at the same anastomotic site. Patient is status post NG tube and is currently well-appearing hemodynamically stable and denies nausea
vomiting or abdominal pain. He seems to be much more comfortable after NG tube placement. His labs are unremarkable. Lactic acid level is normal, he is nontoxic and hemodynamically stable.
PLAN:
Recurrent SBO likely on the basis of anastomotic size constriction versus adhesions.
- Admit to MedSurg
- NG tube to low intermittent suction for now
- N.p.o. except medications
- Pain control and antiemetics
- IV fluids
- Surgery consult, patient does have pending outpatient surgery
ELIS - Mild ELIS.
- s/p 2 L IV fluids in ED, continue maintenance fluids, renal dose medications. F/U am labs
DVT prophylaxis�Lovenox subcu
CODE STATUS�full code
[2025-04-17] MEDS: D5/0.9% SODIUM CHLORIDE 1000 IV (04:29)
[2025-04-17 10:03] LABS: Blood Urea Nitrogen 19 mg/dl (9-20); Calcium 8.5 mg/dl (8.4-10.2); Carbon Dioxide 27 mmol/L (22-30); Chloride 105 mmol/L (98-107); Estimated Creatinine Clearance 57 ml/min; Glucose 140 mg/dl (70-99); Magnesium 2.1 mg/dl (1.6-2.3); Potassium 5.0 mmol/L (3.5-5.1); Sodium 138 mmol/L (135-145); eGFR 57.29
--- NOTE | 2025-04-17 12:48 | W.PN.UPDATE ---
Update Note
Progress Note Update
Patients symptoms imprved with NGT decompression; Cont for now; await flatus
F/u Surg recs
Monitor WBC - most likely reactive
ELIS resolved
[2025-04-17] MEDS: LR 1000 IV (14:05)
--- NOTE | 2025-04-17 14:15 | CON.GS ---
Addendum entered and electronically signed by Fran Diaz MD 04/17/25 16:11:
I saw and examined the patient.
The Director Dermatology's note was reviewed and I agree with the note.
Comment: Feels better with NGT decompression, small gauge tube with frequent clogging, flushed at bedside this am, no flatus yet, belly soft and nt, CT with dilated sb and transition point at known anastomotic stricture, will cont NGT NPO IVF for
today
Original Note:
Consultation
-
Date/Time Consultation Performed: 04/17/25 0255
Medical History
-
Chief Complaint: n/v
History of Present Illness:
Mr May is a 75 yo male with a h/o Crohn's with prior ileocecectomy and recurrent SBO's with last admission for SBO in January of 2025 (02/01-02/03) which was likely related to a stricture at the prior anastomosis site. He presented through the ED last
night with abdominal pain and epigastric discomfort which began yesterday around noon. He notes that he had peaches and blueberries for breakfast with a salad for lunch prior to onset of symptoms. After dinner later that night, he developed nausea
and began vomiting with increasing pain causing him to present for evaluation. NGT was placed in the ED with initial output of 1 liter followed by an additional 1 liter out on the floor and notes much improvement in symptoms with resolution of
nausea and pain. He has not passed flatus today or had any BM's. He denies fevers or chills. He has outpatient follow up planned with Dr. Sotelo planned on April 27 to discuss treatment of the anastomotic stricture.
Past Medical History
Past Medical History: HTN and Other (BPH, Crohn's, gout, CKD 3, SVT)
Past Surgical History: Bowel Resection (ileocecectomy), Cardiac (SVT ablation) and Orthopedic (Left trigger finger surgery)
Social History
Tobacco: Non-Smoker
Alcohol: Occasional
Family History
Family History: Reviewed & Not Pertinent
Allergies / Home Medications
Allergy/AdvReac Type Severity Reaction Status Date / Time
No Known Drug Allergies Allergy Unknown Verified 04/16/25 23:23
�Medication �Instructions �Recorded �Confirmed �Type
cyanocobalamin (vitamin B-12) 1,000 mcg PO HS Supplement 10/29/10 04/16/25 History
1,000 mcg tablet (Vitamin B-12)
atorvastatin 10 mg tablet 10 mg PO HS High cholesterol 10/18/19 04/16/25 History
finasteride 5 mg tablet 5 mg PO HS prostate 10/18/19 04/16/25 History
lisinopril 5 mg tablet 5 mg PO HS Blood pressure 06/13/20 04/16/25 History
Tums 1 tab PO DAILYPRN PRN gerd 02/01/25 04/16/25 History
acetaminophen 325 mg tablet 325 mg PO BIDPRN PRN mild pain 02/01/25 04/16/25 History
(Tylenol)
allopurinol 100 mg tablet 100 mg PO HS Gout 02/01/25 04/16/25 History
docusate sodium 100 mg capsule 100 mg PO HSPRN PRN constipation 02/01/25 04/16/25 History
(Colace)
folic acid 800 mcg tablet 0.8 mg PO HS Supplement 02/01/25 04/16/25 History
latanoprost 0.005 % eye drops 1 drp BOTH EYES HS Eye Condition 02/01/25 04/16/25 History
polyethylene glycol 3350 17 gram 17 g PO DAILYPRN PRN constipation 02/01/25 04/16/25 History
oral powder packet (Miralax)
Review of Systems
-
History Source: Patient
All other systems: Negative unless noted
A 10 point review of systems was completed, and was negative except as per HPI.
Physical Exam
Vital Signs
Temp Pulse Resp BP Pulse Ox
98.2 F 82 16 111/70 93
04/17/25 07:30 04/17/25 07:30 04/17/25 07:30 04/17/25 07:30 04/17/25 07:30
04/16/25 04/17/25 04/18/25
06:59 06:59 06:59
Actual Weight 94.393 kg
Body Mass Index (BMI) 26.7
Lab Results
04/17/25 00:00
04/17/25 07:39
WBC 12.6 10^3/uL (4.8-10.8) H 04/17/25 00:00
Hgb 16.9 g/dL (13.0-18.0) 04/17/25 00:00
Hct 45.8 % (39.0-52.0) 04/17/25 00:00
Plt Count 195 10^3/uL (130-400) 04/17/25 00:00
Physical Exam
General: Well Developed and Well Nourished
HEENT: Moist Mucous Membranes
Respiratory: Non Labored Respirations
GI: Soft, Non Tender, Distended (mild) and Other (NGT with bilious outputs)
Skin: Warm and Dry
Neuro: Awake, Alert and AO x 3
Psych: Calm
Data Reviewed
-
CT Scan: Image Personally Visualized and interpreted, Report Reviewed by me, Discussed with Physician and Discussed with Patient
Labs: Labs Reviewed by me, Discussed with Physician and Discussed with Patient
Old Records: Reviewed
Assessment / Plan
-
75 yo male with h/o Crohn's with prior ileocecectomy and recurrent SBO's with last admission for SBO in January of 2025 (02/01-02/03) which was likely related to a stricture at the prior anastomosis site presenting with SBO with transition point on CT
imaging again noted at the prior anastomosis site. SBO likely related to stricturing combined with dietary indiscretion. AFVSS. Mild leukocytosis with wbc of 12.6. Symptoms improving with NGT decompression, not yet passing flatus/stools. Options
for management including medical, endoscopic, and surgical management were reviewed. Patient is well versed in the above.
Plan:
Continue with NGT decompression
NPO except ice chips for comfort
Analgesics/antiemetics prn
Medical management as per primary team
--- NOTE | 2025-04-17 14:43 | CM ---
CM following re: discharge planning.
Reviewed pt's chart, met with pt and pt's spouse at bedside.
Pt is a 75 year old male, admitted with primary dx of SBO.
Pt reports he lives with spouse 2SH, 1 step to enter, has 2 supportive children. 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 No DME, VN or SNF history
PCP: Evens Smith
Pharmacy: [facility]
D/c plan: home with anticipated no needs. Spouse to transport at discharge.
CM will follow with discharge plan updates as hospitalization progresses
--- NOTE | 2025-04-17 15:10 | PTCARENOTE ---
NGT came out upon patient's multiple sneezes; patient requested not to replace at this time; reported to Dr. Diaz & Gisselle [place] [employer]PECTOR patient's request, also that he had minimal output this afternoon, passing flatus, symptom-free; Gisselle will keep
patient NPO for now and electrically cancelled NGT.
[2025-04-17] MEDS: DILAUDID 0.5 MG IV (16:34)
[2025-04-17] MEDS: LOVENOX 40 MG SC (18:16)
[2025-04-17] MEDS: LIPITOR 10 MG PO (22:32)
[2025-04-17] MEDS: ZESTRIL 5 MG PO (22:32)
[2025-04-17] MEDS: PROSCAR 5 MG PO (22:32)
[2025-04-17] MEDS: ZYLOPRIM 100 MG PO (22:33)
[2025-04-17] MEDS: TYLENOL 650 MG PO (22:41)
[2025-04-18] MEDS: LR 1000 IV (00:45)
[2025-04-18 07:25] VITALS: BP 107/61
[2025-04-18 08:31] LABS: Hematocrit 35.2 % (39.0-52.0); Hemoglobin 12.4 g/dL (13.0-18.0); Mean Corp Hgb Conc. 35.2 g/dL (33.0-37.0); Mean Corpuscular Volume 92.4 fL (80.0-94.0); Platelet Count 137 10^3/uL (130-400); Red Cell Dist. Width 12.5 % (11.5-14.5)
[2025-04-18 09:11] LABS: Blood Urea Nitrogen 19 mg/dl (9-20); Calcium 7.8 mg/dl (8.4-10.2); Carbon Dioxide 28 mmol/L (22-30); Chloride 108 mmol/L (98-107); Estimated Creatinine Clearance 62 ml/min; Glucose 92 mg/dl (70-99); Potassium 4.4 mmol/L (3.5-5.1); Sodium 137 mmol/L (135-145); eGFR > 60.00
--- NOTE | 2025-04-18 12:09 | W.PN.HOSP.TC ---
Addendum entered and electronically signed by Danny Thomas MD 04/18/25 15:23:
[id number]
Original Note:
Today's Communication/Plan
-
DC on FLD if tolerating CLD
F/u Surgery outpt
Assessment / Plan
Assessment / Plan
Physical Exam
General: Well Developed and Well Nourished
HEENT: Moist Mucous Membranes
Respiratory: Non Labored Respirations
GI: Soft, Non Tender, Non distended; NGT removed
Skin: Warm and Dry
Neuro: Awake, Alert and AO x 3
Psych: Calm
Recurrent SBO likely on the basis of anastomotic size constriction versus adhesions.
-Improved, passing flatus, belly non distended
-CLD
-is aware of recurrent bouts; if tolerating CLD, can dc on full liquid diet for appx 1 week as long as tolerating and adv. Has appt with gen surgery next week
HTN
HLD
-resume meds
DVT prophylaxis�Lovenox subcu
CODE STATUS�full code
More than 30 minutes spent in discharge including
Final examination of the patient
Summarizing hospital stay
Instructions for continuing care to all relevant caregivers
Preparation of discharge records, prescriptions, and referral forms
Total time spent (in minutes): 36
Anticipated Discharge: Today
Subjective/Interval History
-
Date of Service: April 18, 2025
Feel, NG tube had to be removed yesterday, passing flatus this morning
Objective Data
-
Labs:
Laboratory Results
04/18/25 04/18/25
07:39 12:08
WBC 2.9 L Pending
Hgb 12.4 L D Pending
Hct 35.2 L Pending
Plt Count 137 D Pending
Sodium 137
Potassium 4.4
Chloride 108 H
Carbon Dioxide 28
BUN 19
Creatinine 1.2
Glucose 92
Calcium 7.8 L
Vital Signs:
Vital Signs
Temp Pulse Resp BP Pulse Ox
98.2 F 54 16 107/61 94
04/18/25 07:25 04/18/25 07:25 04/18/25 07:25 04/18/25 07:25 04/18/25 07:25
I&O
04/17/25 04/18/25 04/19/25
06:59 06:59 06:59
Intake Total 1250 / 1250 2240 / 2240
Output Total 850 / 850 150 / 150
Balance 400 / 400 2089
Review of Systems
-
History Source: Patient
All other systems: Not reviewed unless documented
Data Reviewed
-
CT Scan: Report Reviewed by me
Labs: Labs Reviewed by me
--- NOTE | 2025-04-18 12:15 | W.DS.TRANS ---
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
-
Discharge Instructions:
Discharge Diagnosis/Procedures SBO
Additional Diets Full liquid diet for 1 week or until seen by
surgery; if improving can transition to low
residue diet
Activity As tolerated
Blood Work cbc and cmp in 1 week with pcp
Instructions:
Stand-Alone Forms:
Changes to Home Medications: No
Discharge Medications:
DC Medications w/original date entered in 5o9
cyanocobalamin (vitamin B-12) 1,000 mcg tablet (Vitamin B-12) 1,000 mcg PO HS Supplement 10/29/10
atorvastatin 10 mg tablet 10 mg PO HS High cholesterol 10/18/19
finasteride 5 mg tablet 5 mg PO HS prostate 10/18/19
lisinopril 5 mg tablet 5 mg PO HS Blood pressure 06/13/20
Tums 1 tab PO DAILYPRN PRN gerd 02/01/25
acetaminophen 325 mg tablet (Tylenol) 325 mg PO BIDPRN PRN mild pain 02/01/25
allopurinol 100 mg tablet 100 mg PO HS Gout 02/01/25
docusate sodium 100 mg capsule (Colace) 100 mg PO HSPRN PRN constipation 02/01/25
folic acid 800 mcg tablet 0.8 mg PO HS Supplement 02/01/25
latanoprost 0.005 % eye drops 1 drp BOTH EYES HS Eye Condition 02/01/25
polyethylene glycol 3350 17 gram oral powder packet (Miralax) 17 g PO DAILYPRN PRN constipation 02/01/25
Home Medication Changes
na
Pending Results: No
[2025-04-18 12:20] VITALS: BP 117/65
[2025-04-18 12:38] LABS: Hematocrit 36.1 % (39.0-52.0); Hemoglobin 13.1 g/dL (13.0-18.0); Mean Corp Hgb Conc. 36.3 g/dL (33.0-37.0); Mean Corpuscular Volume 94.3 fL (80.0-94.0); Platelet Count 126 10^3/uL (130-400); Red Cell Dist. Width 12.4 % (11.5-14.5)
--- NOTE | 2025-04-18 13:02 | CM ---
CM following re: discharge planning.
Reviewed pt's chart, met with pt.
Discharge order noted. Pt is aware, expressed his agreement with discharge and he stated his spouse will transport home.
IMM reviewed, placed on chart, pt has a copy.
No after care VN needs identified.
D/c plan: home no needs. Spouse to transport.
--- NOTE | 2025-04-18 14:05 | W.PN.GS2 ---
Today's Communication / Plan
-
Dispo planning
Assessment / Plan
-
75 yo male with h/o Crohn's with prior ileocecectomy and recurrent SBO's which are likely related to a stricture at the prior anastomosis site
NGT out yesterday, symptoms improving
Passing flatus, denies n/v
Plan:
Clear liquids
Analgesics/antiemetics prn
Medical management as per primary team
Patient would like to go home today and advance diet slowly at home. Outpatient follow up is scheduled for just over a week from now. Reasonable for discharge with this plan in place from surgical standpoint.
Subjective Data
-
Date of Service: April 18, 2025
Pt seen and examined at bedside with Dr. Diaz. Denies n/v. Passing a good amount of flatus. Denies pain.
Objective Data
-
Intake and Output
04/17/25 04/18/25 04/19/25
06:59 06:59 06:59
Intake Total 1250 / 1250 2239 / 0
Output Total 850 / 850 150 / 150
Balance 400 / 400 2089
Intake:
Oral fluids 200 / 200
IV fluids (Total) 1250 / 1250 1979 / 1979
nss 1000 / 1000
Amount instilled into GI Tube ( 60 / 60
Total)
[place] Sump 60 / 60
Output:
Gastrointestinal tube output ( 850 / 850 150 / 150
Total)
[place] Sump 150 / 150
Other:
Number of approximated MODERATE 2
amounts of urine
Vital Signs
Temp Pulse Resp BP Pulse Ox
98.2 F 59 16 117/65 97
04/18/25 12:20 04/18/25 12:20 04/18/25 12:20 04/18/25 12:20 04/18/25 12:20
Lab Results
04/18/25 12:26
04/18/25 07:39
Calcium 7.8 mg/dl (8.4-10.2) L 04/18/25 07:39
Magnesium 2.1 mg/dl (1.6-2.3) 04/17/25 07:39
Total Bilirubin 1.5 mg/dl (0.2-1.3) H 04/17/25 00:00
AST 50 U/L (17-59) 04/17/25 00:00
ALT 52 U/L (0-50) H 04/17/25 00:00
Alkaline Phosphatase 99 U/L (38-126) 04/17/25 00:00
Total Protein 8.0 g/dl (6.3-8.2) 04/17/25 00:00
Albumin 5.0 g/dl (3.5-5.0) 04/17/25 00:00
Physical Exam
-
NAD
ABD soft, nt, nd
== END 2025-04-18 15:52 | disposition home or self-care (01) | DRG 386 ==
LOC: 2 SOUTH 03:06
PROVIDERS: Registered Nurse; ADMITTING PHYSICIAN Internal Medicine; ATTENDING PHYSICIAN Internal Medicine; CONSULT PHYSICIAN Surgery; EMERGENCY PHYSICIAN Emergency Medicine; FAMILY PHYSICIAN Internal Medicine
DX: K50.912 Crohn's disease, unspecified, with intestinal obstruction (principal); I47.10 Supraventricular tachycardia, unspecified; K56.50 Intestinal adhesions [bands], unspecified as to partial versus complete obstruction; N17.9 Acute kidney failure, unspecified; N18.30 Chronic kidney disease, stage 3 unspecified; I12.9 Hypertensive chronic kidney disease with stage 1 through stage 4 chronic kidney disease, or unspecified chronic kidney disease; M10.9 Gout, unspecified; N40.0 Benign prostatic hyperplasia without lower urinary tract symptoms; E78.00 Pure hypercholesterolemia, unspecified; Z79.899 Other long term (current) drug therapy; Z87.891 Personal history of nicotine dependence; Z90.49 Acquired absence of other specified parts of digestive tract
CPT/HCPCS: 43752; 74177; 80048; 80053; 83605; 83690; 83735; 85027; 93005; 96361; 96374; 96375; 96376; 99285; Q9967

== ENCOUNTER → 2025-06-07 08:40 | Outpatient (REF) | payer OTHER, SELFPAY | LOC: RAD 08:40 | PROVIDERS: ATTENDING PHYSICIAN Surgery; FAMILY PHYSICIAN Internal Medicine; REFERRING PHYSICIAN Internal Medicine Gastroenterology | DX: K56.600 Partial intestinal obstruction, unspecified as to cause (principal); Z87.19 Personal history of other diseases of the digestive system | CPT/HCPCS: 74250 ==

== ENCOUNTER 2025-06-28 10:31 | Inpatient (IN) | payer OTHER, SELFPAY ==
[2025-06-28] VITALS (8 sets, daily range): BP systolic 116–144; BP diastolic 69–86; BMI 26.3; BMI 26.1
--- NOTE | 2025-06-28 04:30 | ED.GENMED ---
History of Present Illness
<Rosanne Knox MD, Resident - Last Filed: 06/28/25 06:23>
General
Chief Complaint: Abdominal Pain
Source: patient and significant other
Exam Limitations: none
Time Seen by Provider: 06/28/25 04:21
Nursing documentation reviewed up to this point in time: agreed with
History of Present Illness
History of Present Illness:
75yo M with a hx of Crohn's dz (s/p bowel resection) and recurrent SBOs at known anastomotic stricture (last 03/2025) who presents with abdominal pain and bloating.
Pt states that Saturday evening he began having severe abdominal pain and bloating that feel similar to prior SBOs. He had been eating corn tortilla chips during the afternoon. Last had a BM Saturday morning, no BM or flatus since. Has not vomited but
is nauseated. Has been burping. Rates his abdominal pain (in center of abdomen) as 8/10. Denies any fever, CP, SOB. Pt was last discharged from on 04/17/25 from admission for SBO, managed nonoperatively. Has had 4 SBOs in the past year. States
that after his last admission for SBO, he had discussed plan with surgery for lysis of adhesions given obstructions recurring at same stricture point. Had elective procedure scheduled for this coming Monday 07/02.
Past History
<Rosanne Knox MD, Resident - Last Filed: 06/28/25 06:23>
Past History
ED Past Medical History: HTN, Other (Crohn's, small bowel obstruction, hepatitis, anemia, anxiety disorder) and Other (SVT)
ED Past Surgical History: Bowel resection (Small bowel resection), Cardiac and Orthopedic
Social History
Tobacco: Former smoker
Alcohol: Occasional
Drug: None
Personal:
Living: with family
Employment: Retired
Family History
Family History: Other (Noncontributory)
Review of Systems
<Rosanne Knox MD, Resident - Last Filed: 06/28/25 06:23>
Review of Systems
All Other Systems: ROS reviewed and negative except as documented in HPI and ROS
Constitutional: Reports no symptoms
EENT: Reports no symptoms
Respiratory: Reports no symptoms
Cardiac: Reports no symptoms
ABD/GI: Reports abdominal pain, nausea and constipated
: Reports no symptoms
Musculoskeletal: Reports no symptoms
Skin: Reports no symptoms
Neurological: Reports no symptoms
Psychiatric: Reports no symptoms
Phy Exam
<Rosanne Knox MD, Resident - Last Filed: 06/28/25 06:23>
General Physical Exam
General Presentation: moderate distress
General age: appears stated age
General Skin: warm and dry
General Habitus: normal
General Mental: alert
Cardiovascular Exam
Cardiovascular Exam: regular rate/rhythm and no edema
Pulmonary Exam
Pulmonary Exam: no respiratory distress
Gastrointestinal Exam
Gastrointestinal Exam: distended and tender (very tender to light palpation throughout abdomen )
Neurological Exam
Neurological Exam: alert, oriented x3 and no motor deficits
Musculoskeletal Exam
Musculoskeletal Exam: no edema
Skin Exam
Skin Exam: normal color and warm/dry
Psychiatric Exam
Psychiatric Exam: normal mood/affect
Course
<Rosanne Knox MD, Resident - Last Filed: 06/28/25 06:23>
Orders/Labs/Results
Orders:
Orders
06/28/25 04:19
Complete Blood Count/With Diff Urgent
Comprehensive Metabolic Panel Urgent
Lipase Urgent
06/28/25 04:41
HYDROmorphone [Dilaudid] 0.5 mg IV NOW STA
06/28/25 04:42
Ondansetron Injectable [Zofran] 4 mg IV NOW STA
06/28/25 04:45
Abdominal Series [CR Obstruct Series W/pa Chest] Urgent
Comment:
Reason For Exam: eval suspected SBO
06/28/25 05:09
0.9% Sodium Chloride 1000 ml [Nss] 1,000 ml IV BOLUS
06/28/25 05:19
GI tube insertion- Treatment ONCE
06/28/25 05:29
Lactic Acid Urgent
06/28/25 05:44
Lidocaine 2% [Lidocaine Uro-Jet 2%] 1 syringe .ROUTE .STK-MED ONE
06/28/25 05:58
HYDROmorphone [Dilaudid] 0.5 mg .ROUTE .STK-MED ONE
06/28/25 Breakfast
NPO
Allow oral meds: No
Allow clear liquids: No
06/28/25 06:04
HYDROmorphone [Dilaudid] 0.5 mg IV NOW STA
06/28/25 06:39
Consult Gastroenterology [GASTROINTESTINAL CONSULT] Routine
Consulting Provider: Crissy Gross
Was physician already notified: Yes
06/28/25 06:42
Consult Surgery [SURGICAL CONSULT] Routine
Consulting Provider: Mane Calhoun
Was physician already notified: Yes
Abnormal Lab Results
06/28/25
04:19
MCH 32.9 H pg
(27.0-31.0)
Absolute Neuts (auto) 7.9 H 10^3/uL
(1.4-6.5)
Absolute Lymphs (auto) 1.0 L 10^3/uL
(1.2-3.4)
Neutrophils % 82.4 H %
(42.2-75.2)
Lymphocytes % 10.3 L %
(20.5-51.1)
Creatinine 1.4 H mg/dL
(0.7-1.3)
Glucose 114 H mg/dl
(70-99)
06/28/25 04:41
06/28/25 04:19
Vital Signs
Initial and Last Documented VS:
Initial Vital Signs
Temp Pulse Resp BP Pulse Ox
97.6 F 78 24 120/74 100
06/28/25 03:28 06/28/25 03:28 06/28/25 03:28 06/28/25 03:28 06/28/25 03:28
Last Documented Vital Signs
Temp Pulse Resp BP Pulse Ox
97.6 F 75 15 130/72 97
06/28/25 03:28 06/28/25 06:30 06/28/25 06:30 06/28/25 06:00 06/28/25 06:30
<Tori Boogie DO - Last Filed: 06/28/25 07:17>
Orders/Labs/Results
Orders:
Orders
06/28/25 04:19
Complete Blood Count/With Diff Urgent
Comprehensive Metabolic Panel Urgent
Lipase Urgent
06/28/25 04:41
HYDROmorphone [Dilaudid] 0.5 mg IV NOW STA
06/28/25 04:42
Ondansetron Injectable [Zofran] 4 mg IV NOW STA
06/28/25 04:45
Abdominal Series [CR Obstruct Series W/pa Chest] Urgent
Comment:
Reason For Exam: eval suspected SBO
06/28/25 05:09
0.9% Sodium Chloride 1000 ml [Nss] 1,000 ml IV BOLUS
06/28/25 05:19
GI tube insertion- Treatment ONCE
06/28/25 05:29
Lactic Acid Urgent
06/28/25 05:44
Lidocaine 2% [Lidocaine Uro-Jet 2%] 1 syringe .ROUTE .STK-MED ONE
06/28/25 05:58
HYDROmorphone [Dilaudid] 0.5 mg .ROUTE .STK-MED ONE
06/28/25 Breakfast
NPO
Allow oral meds: No
Allow clear liquids: No
06/28/25 06:04
HYDROmorphone [Dilaudid] 0.5 mg IV NOW STA
06/28/25 06:39
Consult Gastroenterology [GASTROINTESTINAL CONSULT] Routine
Consulting Provider: Crissy Gross
Was physician already notified: Yes
06/28/25 06:42
Consult Surgery [SURGICAL CONSULT] Routine
Consulting Provider: Mane Calhoun
Was physician already notified: Yes
Abnormal Lab Results
06/28/25
04:19
MCH 32.9 H pg
(27.0-31.0)
Absolute Neuts (auto) 7.9 H 10^3/uL
(1.4-6.5)
Absolute Lymphs (auto) 1.0 L 10^3/uL
(1.2-3.4)
Neutrophils % 82.4 H %
(42.2-75.2)
Lymphocytes % 10.3 L %
(20.5-51.1)
Creatinine 1.4 H mg/dL
(0.7-1.3)
Glucose 114 H mg/dl
(70-99)
06/28/25 04:41
06/28/25 04:19
Vital Signs
Initial and Last Documented VS:
Initial Vital Signs
Temp Pulse Resp BP Pulse Ox
97.6 F 78 24 120/74 100
06/28/25 03:28 06/28/25 03:28 06/28/25 03:28 06/28/25 03:28 06/28/25 03:28
Last Documented Vital Signs
Temp Pulse Resp BP Pulse Ox
97.6 F 75 15 130/72 97
06/28/25 03:28 06/28/25 06:30 06/28/25 06:30 06/28/25 06:00 06/28/25 06:30
<Rosanne Knox MD, Resident - Last Filed: 06/28/25 06:23>
MDM/Problems Addressed
Differential Diagnosis Includes:
Recurrent SBO 2/2 known stricture/adhesions
Less likely:
Perforated bowel (hemodynamically stable)
Pancreatitis
Appendicitis
Cholecystitis
Diverticulitis
MDM/Problems Addressed:
- CBC, CMP, lipase
- NPO
- Abdominal xrays
- Dilaudid
- Zofran
- Likely NG tube decompression
- Likely consult surgery & plan for admission
<Rosanne Knox MD, Resident - Last Filed: 06/28/25 06:23>
*Pulse Oximetry
SaO2: 97
Oxygen Mode of Delivery: Room air
Patient hypoxic: no
*Critical Care Note
Total Time (30-74mins, 75-104mins- exclusive of procedures): Not Applicable
<Rosanne Knox MD, Resident - Last Filed: 06/28/25 06:23>
Update Note
Update Note:
5am
NG tube for sx relief
6:15am
XR without signs of free air; with multiple dilated loops of bowel & air-fluid levels c/w SBO
Will plan to admit
ED Attending Note
<Rosanne Knox MD, Resident - Last Filed: 06/28/25 06:23>
-
Portions of this chart may have been created with voice recognition software.� Occasional wrong word or��sound alike� substitutions may have occurred due to the inherent limitations of voice recognition software.
<Tori Boogie DO - Last Filed: 06/28/25 07:17>
ED Attending Note
Patient seen and examined by attending physician: Yes
ED Attending Note:
This is a 75-year-old gentleman with history of Crohn's disease status post bowel resection and history of recurrent small bowel obstructions thought to be related to anastomotic stricture. He was last hospitalized here January and then again in
March with recurrent small bowel obstructions.
He is scheduled for abdominal surgical repair, lysis of adhesions with Dr. Sotelo this July 02. He admits to some dietary indiscretion eating a lot of corn chips this evening and developed abdominal pain, crampy in nature, abdominal
bloating, nausea and has not passed gas or bowel movement since this morning.
Symptoms are very similar to previous episodes of small bowel obstruction.
75-year-old gentleman appears his stated age, awake and alert, pleasant, appears mildly uncomfortable.
Abdomen is distended, mildly firm, moderate generalized tenderness to the mid to left kai-abdomen. Hypoactive bowel sounds.
History and exam concerning for recurrent small bowel obstruction.
Will initiate IV fluids, medicate for pain and nausea.
Will check obstruction series.
Will check lactic acid assess for potential ischemic bowel.
Will plan for NG tube and admit to hospitalist service.
Discharge Plan
Departure
Patient Disposition: Admit
Date of Disposition: 06/28/25
Time of Disposition: 06:19
Admit to: Med/Surg
Admit to doctor: Crow
Presentation/result/management discussed w/ accepting MD/DO: Hospitalist
Patient with high blood pressure during this ER visit?: No
Condition: Fair
Covid-19: Not Applicable
Discharge Problem:
SBO (small bowel obstruction)
Prescriptions:
No Action
cyanocobalamin (vitamin B-12) [Vitamin B-12] 1,000 MCG tablet
1,000 mcg PO HS
atorvastatin 10 MG tablet
10 mg PO HS
finasteride 5 MG tablet
5 mg PO HS
lisinopril 5 MG tablet
5 mg PO HS
latanoprost 0.005 % Drops
1 drp BOTH EYES HS
allopurinol 100 mg Tablet
100 mg PO HS
folic acid 800 mcg Tablet
0.8 mg PO HS
Sutab 1.479-0.188- 0.225 gram Tablet
0 tab PO PER PKG DIR
Referrals:
Evens Smith MD [Family Provider, Internal Medicine]
Interventions
Interventions:
*Risk Screen - Suicide Last Done: 06/28/25 03:28
*General Assessment Last Done: 06/28/25 04:06
*Neglect/Abuse Screening Last Done: 06/28/25 03:28
*ED COVID-19 Vaccine History Last Done: 06/28/25 04:06
*ED Influenza Vaccine History Last Done: 06/28/25 04:06
[facility] Fall Risk Assessment Tool Last Done: 06/28/25 04:06
NO-Dgznzg-Jzlejlyxmt Assessment Last Done: 06/28/25 04:07
Discharge Date and Time
Print Language: FRISIAN
[2025-06-28 04:32] LABS: Hematocrit 44.0 % (39.0-52.0); Hemoglobin 16.1 g/dL (13.0-18.0); Mean Corp Hgb Conc. 36.6 g/dL (33.0-37.0); Mean Corpuscular Volume 89.8 fL (80.0-94.0); Nucleated Red Blood Cells % 0 % (-); Platelet Count 186 10^3/uL (130-400); Red Cell Dist. Width 12.1 % (11.5-14.5)
[2025-06-28] MEDS: ZOFRAN 4 MG IV (04:45)
[2025-06-28] MEDS: DILAUDID 0.5 MG IV ×2 (04:46→06:05)
[2025-06-28 04:59] LABS: ALT (SGPT) 48 U/L (0-50); AST (SGOT) 42 U/L (17-59); Albumin 4.5 g/dl (3.5-5.0); Alkaline Phosphatase 87 U/L (38-126); Blood Urea Nitrogen 18 mg/dl (9-20); Calcium 9.9 mg/dl (8.4-10.2); Carbon Dioxide 29 mmol/L (22-30); Chloride 100 mmol/L (98-107); Estimated Creatinine Clearance 53 ml/min; Glucose 114 mg/dl (70-99); Lipase 75 U/L (23-300); Potassium 4.6 mmol/L (3.5-5.1); Sodium 136 mmol/L (135-145); Total Protein 7.5 g/dl (6.3-8.2); eGFR 52.41
[2025-06-28] MEDS: NSS 1000 IV ×2 (05:11→13:55)
--- NOTE | 2025-06-28 09:12 | HPS.HSE ---
Family Physician
-
Family Physician: Evens Smith
Chief Complaint
-
Abd pain
History of Present Illness
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
nausea. Patient reports eating corn chips yesterday morning, and then developed right lower quadrant abdominal pain later that evening. Associated symptoms include nausea. He denies vomiting. He had a bowel movement yesterday morning. Denies
flatus, denies bowel movements since presentation to the ER. He also denies chest pain, denies shortness of breath. No fever. Patient was scheduled to have laparoscopic NILSON and lap assisted SBR w/ Dr. Sotelo on 07/02/25.
Medical History
Past Medical History
Past Medical History: Reports Other
Additional Past Medical History:
Crohn's Disease
Recurrent SBO
Gout
CKD III
SVT
BPH
Hypertension
Past Surgical History: Reports Other
Additional Past Surgical History:
Small Bowel Resections for Crohn's Disease
SVT Ablation
Left Trigger Finger Surgery (3 weeks ago)
Social History
Tobacco: Non-smoker
Alcohol: Occasional
Drug: None
Family History
Family History: Not pertinent
Allergies / Home Medications
Allergies reflects when Allergies were last updated in [facility].
Home Medications with original date entered in [facility]
Allergy/Medication List:
Allergies
Allergy/AdvReac Type Severity Reaction Status Date / Time
No Known Drug Allergies Allergy Unknown Verified 06/28/25 03:30
Home Medications Table - record
�Medication �Instructions �Recorded �Confirmed
cyanocobalamin (vitamin B-12) 1,000 mcg PO HS Supplement 10/29/10 06/28/25
1,000 mcg tablet (Vitamin B-12)
atorvastatin 10 mg tablet 10 mg PO HS High cholesterol 10/18/19 06/28/25
finasteride 5 mg tablet 5 mg PO HS prostate 10/18/19 06/28/25
lisinopril 5 mg tablet 5 mg PO HS Blood pressure 06/13/20 06/28/25
allopurinol 100 mg tablet 100 mg PO HS Gout 02/01/25 06/28/25
folic acid 800 mcg tablet 0.8 mg PO HS Supplement 02/01/25 06/28/25
latanoprost 0.005 % eye drops 1 drp BOTH EYES HS Eye Condition 02/01/25 06/28/25
polyethylene glycol 3350 17 gram 17 g PO DAILY Constipation 06/28/25 06/28/25
oral powder packet (Miralax)
Review of Systems
-
A 12 point ROS was completed and negative except as noted: Yes
Physical Exam
Vital Signs
Vital Signs
Temp Pulse Resp BP Pulse Ox
97.6 F 75 15 130/72 97
06/28/25 03:28 06/28/25 06:30 06/28/25 06:30 06/28/25 06:00 06/28/25 06:30
Physical Exam
General: No Apparent Distress
HEENT: NormoCephalic, Anicteric and Moist mucous membranes
Respiratory: Clear
Cardiac: S1/S2
GI: Soft, Non Tender and Non Distended
Musculoskeletal: No Clubbing, No Cyanosis and No Edema
Skin: Warm
Neuro: AO x 3
Laboratory Results
-
06/28/25 04:41
06/28/25 04:19
Laboratory Results
Lactic Acid 1.4 mmol/L (0.7-2.0) 06/28/25 05:29
Total Bilirubin 1.3 mg/dl (0.2-1.3) 06/28/25 04:19
AST 42 U/L (17-59) 06/28/25 04:19
ALT 48 U/L (0-50) 06/28/25 04:19
Alkaline Phosphatase 87 U/L (38-126) 06/28/25 04:19
Lipase 75 U/L (23-300) 06/28/25 04:19
Impression/Plan
-
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
nausea. Patient reports eating corn chips yesterday morning, and then developed right lower quadrant abdominal pain later that evening. Associated symptoms include nausea. He denies vomiting. He had a bowel movement yesterday morning. Denies
flatus, denies bowel movements since presentation to the ER. He also denies chest pain, denies shortness of breath. No fever. Patient was scheduled to have laparoscopic NILSON and lap assisted SBR w/ Dr. Sotelo on 07/02/25.
#Recurrent SBO
Patient was scheduled to have laparoscopic NILSON and lap assisted SBR w/ Dr. Sotelo on 07/02/25
Status post NG tube placement in the ER
Consult general surgery
Continue n.p.o., IV fluids, antiemetics/pain meds as needed
#Stage III CKD
Trend creatinine, no nephrotoxic drugs/NSAIDs
#BPH
Resume finasteride when able
Bladder scan protocol
#History of essential hypertension
Resume lisinopril when able
DVT prophylaxis�subcu Lovenox
Full code
Total time spent to see the patient on the floor, examine the patient, review data and lab results, discuss treatment plan with patient, nursing staff around 65 minutes.
--- NOTE | 2025-06-28 12:47 | CON.GS ---
Addendum entered and electronically signed by MILEY Moore 06/28/25 14:01:
CXR for NGT placement with tip in the stomach, second lumen likely in the esophagus. Advance by 5cm to 60cm at the nare. 14fr NGT was placed in the ED, risk for occlusion d/t small size, will add q4h and prn NGT flushes
Original Note:
Consultation
-
Date/Time Consultation Performed: 06/28/25 1100
Medical History
-
Chief Complaint: n/v
History of Present Illness:
Mr May is a 75 yo male with a h/o Crohn's with prior ileocecectomy and recurrent SBO's secondary to anastomotic stricture with last admission for SBO in March of 2025. He has followed up in the outpatient setting with Dr. Sotelo and had
surgery scheduled for 07/02/25 for laparoscopic NILSON and lap assisted SBR in management. He developed abdominal pain and bloating yesterday evening which worsened throughout the night with nausea and vomiting causing him to present to the ED for
evaluation. An NGT was placed with over 1L of outputs initially and with relief in symptoms.
Past Medical History
Past Medical History: Arrhythmias (svt s/p ablation) and Other (Crohn's disease, BPH, gout, CKD 3)
Past Surgical History: Bowel Resection (laparotomy with ileocecectomy 2010), Cardiac (SVT ablation), Orthopedic (trigger finger) and Other (Last colonoscopy 2 years ago with [facility] at [place])
Social History
Tobacco: Former Smoker
Alcohol: Occasional
Family History
Family History: Cancer (father-prostate ca)
Allergies / Home Medications
Allergy/AdvReac Type Severity Reaction Status Date / Time
No Known Drug Allergies Allergy Unknown Verified 06/28/25 03:30
�Medication �Instructions �Recorded �Confirmed �Type
cyanocobalamin (vitamin B-12) 1,000 mcg PO HS Supplement 10/29/10 06/28/25 History
1,000 mcg tablet (Vitamin B-12)
atorvastatin 10 mg tablet 10 mg PO HS High cholesterol 10/18/19 06/28/25 History
finasteride 5 mg tablet 5 mg PO HS prostate 10/18/19 06/28/25 History
lisinopril 5 mg tablet 5 mg PO HS Blood pressure 06/13/20 06/28/25 History
allopurinol 100 mg tablet 100 mg PO HS Gout 02/01/25 06/28/25 History
folic acid 800 mcg tablet 0.8 mg PO HS Supplement 02/01/25 06/28/25 History
latanoprost 0.005 % eye drops 1 drp BOTH EYES HS Eye Condition 02/01/25 06/28/25 History
polyethylene glycol 3350 17 gram 17 g PO DAILY Constipation 06/28/25 06/28/25 History
oral powder packet (Miralax)
Review of Systems
-
A 10 point review of systems was completed, and was negative except as per HPI.
Physical Exam
Vital Signs
Temp Pulse Resp BP Pulse Ox
97.6 F 73 18 134/76 97
06/28/25 03:28 06/28/25 08:30 06/28/25 08:30 06/28/25 08:00 06/28/25 08:00
06/27/25 06/28/25 06/29/25
06:59 06:59 06:59
Actual Weight 92.986 kg
Body Mass Index (BMI) 26.3
Lab Results
06/28/25 04:41
06/28/25 04:19
WBC Cancelled 06/28/25 04:41
Hgb Cancelled 06/28/25 04:41
Hct Cancelled 06/28/25 04:41
Plt Count Cancelled 06/28/25 04:41
Abs Immat Gran (auto) Cancelled 06/28/25 04:41
Neutrophils % Cancelled 06/28/25 04:41
Physical Exam
General: Well Developed and Well Nourished
HEENT: Moist Mucous Membranes
GI: Soft, Non Tender, Distended and Other (NGT with bilious outputs)
Skin: Warm and Dry
Neuro: Awake, Alert and AO x 3
Psych: Calm
Assessment / Plan
-
75 yo male with a h/o Crohn's with prior ileocecectomy and recurrent SBO's secondary to anastomotic stricture with last admission for SBO in March of 2025. He has followed up in the outpatient setting with Dr. Sotelo and had surgery scheduled
for 07/02/25 for laparoscopic NILSON and lap assisted SBR in management. He presents this admission with n/v/abdominal discomfort and distention with XR consistent with recurrence of SBO, susepct at anastomotic stricture as previously. NGT in place
with bilious outputs present, >1L output on insertion.
Plan:
Continue with NGT decompression
Check XR to confirm NGT placement
NPO except ice chips for comfort
Analgesics/antiemetics prn
Medical management as per primary team
Will continue as planned with operative intervention this week for lap assisted NILSON and SBR, will adjust timing of surgery if needed pending pt progress
--- NOTE | 2025-06-28 12:51 | EDCM ---
Reviewed chart and met with pt's , pt was in xray. Lives with in 2 story home, [address].
Independent in ADLs, personal care and ambulation at baseline. Does not use assistive device but does have RW and WC in home.
Pt is scheduled to have outpatient surgery on Saturday.
Confirms prescription coverage.
PCP: Evens Smith
Pharmacy: [facility]
Anticipate discharge home, CM will continue to follow for all discharge planning needs.
[2025-06-28] MEDS: CHLORASEPTIC/SORE THROAT SPRAY 1 SPRAY PO (14:47)
--- NOTE | 2025-06-28 15:08 | PTCARENOTE ---
Received patient from ED via stretcher. AAOx3, ambulated to bed. Assessed and oriented to room. NGT noted to right nare- order received by surgery to advance NGT 5cm. Patient's abdominal pain 3/10, tolerable. Call kc in close reach.
[2025-06-28] MEDS: LOVENOX 40 MG SC (17:04)
[2025-06-28] MEDS: D5/0.9% SODIUM CHLORIDE 1000 IV (22:44)
[2025-06-28] MEDS: NSS IV (22:45)
[2025-06-29] MEDS: DILAUDID 0.5 MG IV (01:02)
--- NOTE | 2025-06-29 07:38 | W.PN.GS2 ---
Today's Communication / Plan
-
`
Assessment / Plan
-
Assessment: 75-year-old male well-known to myself with small bowel and ileocolonic anastomotic strictures presenting with recurrent probable partial high-grade small bowel obstruction presumably at location of proximal small bowel anastomotic
stricture. (Based on presenting obstruction series/x-ray; no CT imaging this hospitalization)
History notable for Crohn's disease status post ex lap SBR and ileocecectomy in 2010; recurrent strictures are felt to be more related to anastomotic fibrotic scar/stricture than Crohn's related which appears to be in remission.
AFVSS
Clinically improving
Plan: Maintain NG tube decompression for now given bilious output and some residual tympany/distention on examination
Will reassess in afternoon for possible NG tube removal if signs of GI recovery
Continue current plan for scheduled surgical management of his strictures 07/02/2025; if obstruction relieves he would be able to be discharged discharged and maintained on liquid diet until surgery
Subjective Data
-
Date of Service: June 29, 2025
Patient seen and examined.
Denies further abdominal pain since early a.m. when received last dose of Dilaudid
No flatus or bowel movement yet
NG tube in place with mild sore throat
No nausea, no vomiting feeling less distended
Objective Data
-
Intake and Output
06/28/25 06/29/25 06/30/25
06:59 06:59 06:59
Intake Total 530 / 530 1200 / 1200
Output Total 200 / 200 650 / 650
Balance 330 / 330 550 / 550
Intake:
IV fluids (Total) 500 / 500 1200 / 1200
Amount instilled into GI Tube ( 30 / 30
Total)
[place] Sump 30 / 30
Output:
Gastrointestinal tube output ( 200 / 200
Total)
[place] Sump 200 / 200
Urine, Voided 650 / 650
Vital Signs
Temp Pulse Resp BP Pulse Ox
99.0 F 80 16 129/86 94
06/28/25 23:11 06/28/25 23:11 06/28/25 23:11 06/28/25 23:11 06/28/25 23:11
Calcium 9.9 mg/dl (8.4-10.2) 06/28/25 04:19
Total Bilirubin 1.3 mg/dl (0.2-1.3) 06/28/25 04:19
AST 42 U/L (17-59) 06/28/25 04:19
ALT 48 U/L (0-50) 06/28/25 04:19
Alkaline Phosphatase 87 U/L (38-126) 06/28/25 04:19
Total Protein 7.5 g/dl (6.3-8.2) 06/28/25 04:19
Albumin 4.5 g/dl (3.5-5.0) 06/28/25 04:19
Physical Exam
-
NAD AAO x 3
ABD: Softly distended with some tympany particularly in the left upper quadrant.
No tenderness on palpation
No hernias
NG tube in place with bilious contents
Patient has a law catheter: No
--- NOTE | 2025-06-29 07:51 | W.PN.HOSP.TC ---
Today's Communication/Plan
-
see bold
Assessment / Plan
Assessment / Plan
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
nausea. Patient reports eating corn chips yesterday morning, and then developed right lower quadrant abdominal pain later that evening. Associated symptoms include nausea. He denies vomiting. He had a bowel movement yesterday morning. Denies
flatus, denies bowel movements since presentation to the ER. He also denies chest pain, denies shortness of breath. No fever. Patient was scheduled to have laparoscopic NILSON and lap assisted SBR w/ Dr. Sotelo on 07/02/25.
#Recurrent SBO
Patient was scheduled to have laparoscopic NILSON and lap assisted SBR w/ Dr. Sotelo on 07/02/25
Status post NG tube placement in the ER
Appreciate general surgery input
Continue n.p.o., NGT, IV fluids, antiemetics/pain meds as needed
#Stage III CKD
Trend creatinine, no nephrotoxic drugs/NSAIDs
#BPH
Resume finasteride when able
Bladder scan protocol
#History of essential hypertension
Resume lisinopril when able
DVT prophylaxis�subcu Lovenox
Full code
Total time spent to see the patient on the floor, examine the patient, review data and lab results, discuss treatment plan with patient, nursing staff around 38 minutes.
Physical Exam
General: No acute distress
HEENT: Normocephalic, Atraumatic, EOMI, MMM
Respiratory: Clear to Auscultation bilaterally
Cardiac: Normal S1/S2, Regular Rate and Rhythm
GI: Soft, hypoactive bowel sounds, tender at the right lower quadrant, no masses/guarding/rebound
Extremities: No Clubbing, Cyanosis, or Edema
Neuro: Nonfocal/Grossly Intact
Psych: Calm, Cooperative
Anticipated Discharge: Within 24 hours
Subjective/Interval History
-
Date of Service: June 29, 2025
Patient reports his nausea and abdominal pain have resolved. He is passing gas, no stools. Denies chest pain, denies shortness of breath. No fever, no vomiting.
Objective Data
-
Labs:
Laboratory Results
06/29/25
06:00
WBC Pending
Hgb Pending
Hct Pending
Plt Count Pending
Sodium Pending
Potassium Pending
Chloride Pending
Carbon Dioxide Pending
BUN Pending
Creatinine Pending
Glucose Pending
Calcium Pending
Vital Signs:
Vital Signs
Temp Pulse Resp BP Pulse Ox
99.0 F 80 16 129/86 94
06/28/25 23:11 06/28/25 23:11 06/28/25 23:11 06/28/25 23:11 06/28/25 23:11
I&O
06/28/25 06/29/25 06/30/25
06:59 06:59 06:59
Intake Total 530 / 530 1200 / 1200
Output Total 200 / 200 650 / 650
Balance 330 / 330 550 / 550
[2025-06-29] MEDS: D5/0.9% SODIUM CHLORIDE 1000 IV ×2 (08:39→16:54)
[2025-06-29 08:44] VITALS: BP 135/85
[2025-06-29 09:28] LABS: Hematocrit 39.5 % (39.0-52.0); Hemoglobin 14.1 g/dL (13.0-18.0); Mean Corp Hgb Conc. 35.7 g/dL (33.0-37.0); Mean Corpuscular Volume 93.8 fL (80.0-94.0); Platelet Count 147 10^3/uL (130-400); Red Cell Dist. Width 12.4 % (11.5-14.5)
[2025-06-29 10:27] LABS: Blood Urea Nitrogen 20 mg/dl (9-20); Calcium 7.9 mg/dl (8.4-10.2); Carbon Dioxide 30 mmol/L (22-30); Chloride 103 mmol/L (98-107); Estimated Creatinine Clearance 57 ml/min; Glucose 112 mg/dl (70-99); Magnesium 2.2 mg/dl (1.6-2.3); Potassium 4.6 mmol/L (3.5-5.1); Sodium 135 mmol/L (135-145); eGFR 57.29
--- NOTE | 2025-06-29 14:30 | W.PN.SURGUPD ---
Surgical Update
Surgical Update
pt seen in followup, at bedside
passing flatus a few times, no BM
NGT in place minimal output today; flushed and no residual noted
removed NGT
sips clears for comfort; hold on further dietary advancement for now
will follow
--- NOTE | 2025-06-29 15:26 | CM ---
Continues on IVF and IV pain meds. Advanced to sips of clears for diet
Plan: Home, no needs
[2025-06-29 16:00] VITALS: BP 117/71
[2025-06-29] MEDS: LOVENOX 40 MG SC (16:51)
[2025-06-29 23:36] VITALS: BP 103/61
[2025-06-30] MEDS: D5/0.9% SODIUM CHLORIDE 1000 IV (02:28)
[2025-06-30 07:00] VITALS: BP 123/71
[2025-06-30 08:24] LABS: Blood Urea Nitrogen 14 mg/dl (9-20); Calcium 7.7 mg/dl (8.4-10.2); Carbon Dioxide 26 mmol/L (22-30); Chloride 105 mmol/L (98-107); Estimated Creatinine Clearance 67 ml/min; Glucose 98 mg/dl (70-99); Potassium 4.0 mmol/L (3.5-5.1); Sodium 135 mmol/L (135-145); eGFR > 60.00
--- NOTE | 2025-06-30 09:11 | W.PN.HOSP.TC ---
Today's Communication/Plan
-
Discharge today if tolerating full liquids, return on Saturday for his previously planned surgery
Assessment / Plan
Assessment / Plan
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
nausea. Patient reports eating corn chips yesterday morning, and then developed right lower quadrant abdominal pain later that evening. Associated symptoms include nausea. He denies vomiting. He had a bowel movement yesterday morning. Denies
flatus, denies bowel movements since presentation to the ER. He also denies chest pain, denies shortness of breath. No fever. Patient was scheduled to have laparoscopic NILSON and lap assisted SBR w/ Dr. Sotelo on 07/02/25.
#Recurrent SBO
Patient was scheduled to have laparoscopic NILSON and lap assisted SBR w/ Dr. Sotelo on 07/02/25
Status post NG tube placement in the ER
Appreciate general surgery input, NG tube removed 06/29
For full liq diet today
Discharge today if tolerating full liquids, return on Saturday for his previously planned surgery
#Stage III CKD
Trend creatinine, no nephrotoxic drugs/NSAIDs
#BPH
Resume finasteride when able
Bladder scan protocol
#History of essential hypertension
Resume lisinopril when able
DVT prophylaxis�subcu Lovenox
Full code
Physical Exam
General: No acute distress
HEENT: Normocephalic, Atraumatic, EOMI, MMM
Respiratory: Clear to Auscultation bilaterally
Cardiac: Normal S1/S2, Regular Rate and Rhythm
GI: Soft, hypoactive bowel sounds, tender at the right lower quadrant, no masses/guarding/rebound
Extremities: No Clubbing, Cyanosis, or Edema
Neuro: Nonfocal/Grossly Intact
Psych: Calm, Cooperative
Anticipated Discharge: Today
Subjective/Interval History
-
Date of Service: June 30, 2025
Patient's abdominal pain has resolved. He is passing gas, no stools. No nausea, no vomiting. No fever.
Objective Data
-
Labs:
Laboratory Results
06/30/25
06:58
Sodium 135
Potassium 4.0
Chloride 105
Carbon Dioxide 26
BUN 14
Creatinine 1.1
Glucose 98
Calcium 7.7 L
Vital Signs:
Vital Signs
Temp Pulse Resp BP Pulse Ox
98.3 F 59 12 123/71 98
06/30/25 07:00 06/30/25 07:00 06/30/25 07:00 06/30/25 07:00 06/30/25 07:00
I&O
06/29/25 06/30/25 07/01/25
06:59 06:59 06:59
Intake Total 530 / 530 2400 / 2400
Output Total 200 / 200 1900 / 1900
Balance 330 / 330 500 / 500
--- NOTE | 2025-06-30 09:41 | W.PN.GS2 ---
Today's Communication / Plan
-
`
Assessment / Plan
-
Assessment: 75-year-old male well-known to myself with small bowel and ileocolonic anastomotic strictures presenting with recurrent probable partial high-grade small bowel obstruction presumably at location of proximal small bowel anastomotic
stricture. (Based on presenting obstruction series/x-ray; no CT imaging this hospitalization)
History notable for Crohn's disease status post ex lap SBR and ileocecectomy in 2010; recurrent strictures are felt to be more related to anastomotic fibrotic scar/stricture than Crohn's related which appears to be in remission.
AFVSS
Clinically improving
Plan: full liquid diet
miralax
okay for d/c from surgical standpoint if raghavendra fulls
Continue current plan for scheduled surgical management of his strictures 07/02/2025
Subjective Data
-
Date of Service: June 30, 2025
feels better
no abdominal pain or cramps over the last 24hrs
no abdominal distention or bloating, no nausea/vomiting
passing flatus regularly, no BM yet
Objective Data
-
Intake and Output
06/29/25 06/30/25 07/01/25
06:59 06:59 06:59
Intake Total 530 / 530 2400 / 2400
Output Total 200 / 200 1900 / 1900
Balance 330 / 330 500 / 500
Intake:
Oral fluids 0 / 0
IV fluids (Total) 500 / 500 2400 / 2400
Amount instilled into GI Tube ( 30 / 30
Total)
[place] Sump 30 / 30
Output:
Gastrointestinal tube output ( 200 / 200
Total)
[place] Sump 200 / 200
Urine, Voided 1900 / 1900
Vital Signs
Temp Pulse Resp BP Pulse Ox
98.3 F 59 12 123/71 98
06/30/25 07:00 06/30/25 07:00 06/30/25 07:00 06/30/25 07:00 06/30/25 07:00
Lab Results
06/29/25 08:36
06/30/25 06:58
Calcium 7.7 mg/dl (8.4-10.2) L 06/30/25 06:58
Magnesium 2.2 mg/dl (1.6-2.3) 06/29/25 08:36
Total Bilirubin 1.3 mg/dl (0.2-1.3) 06/28/25 04:19
AST 42 U/L (17-59) 06/28/25 04:19
ALT 48 U/L (0-50) 06/28/25 04:19
Alkaline Phosphatase 87 U/L (38-126) 06/28/25 04:19
Total Protein 7.5 g/dl (6.3-8.2) 06/28/25 04:19
Albumin 4.5 g/dl (3.5-5.0) 06/28/25 04:19
Physical Exam
-
NAD AAOx3
ABD: soft, ND today, no tympany in the LUQ
no tenderness on palpation
[2025-06-30] MEDS: MIRALAX 17 GRAMS PO (11:10)
--- NOTE | 2025-06-30 12:17 | W.DCSUMMARY ---
Discharge Summary
Discharge Data
Date of Admission: 06/28/25
Date of Discharge: 06/30/25
-
Pending Results: No
Hospital Course
Discharge diagnosis:
Recurrent small bowel obstruction secondary to anastomotic stricture
Stage III chronic knee disease
Benign prostatic hypertrophy
Essential hypertension
Consults: General Surgery
Acute obstruction series:
1. Findings consistent with high-grade small bowel obstruction. Small bowel is dilated and measures up to 6.2 cm in diameter.
2. Clear lungs.
Hospital course:
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 Patient was
scheduled to have laparoscopic NILSON and lap assisted SBR w/ Dr. Sotelo on 07/02/25. He was seen in conjunction with general surgery. He was treated with bowel rest, NG tube placement, IV fluids. His NG tube was removed the following day. He
started passing gas. He tolerated a full liquid diet. He is medically stable and cleared by general surgery for discharge. He has been instructed to return on 07/02/2025 for his surgery with Dr. Soetlo.
Disposition: Home self-care
Discharge planning: Required 31 minutes
Discharge Plan
-
Patient Disposition: Home (Routine Discharge)
Discharge Diagnosis/Procedures: Recurrent partial small bowel obstruction from anastomotic stricture
Condition: Good
Diet: Other diet
Additional Diets: soft diet, smaller meals throughout the day
Activity: As tolerated
Driving Restrictions: As prior to admission
Bathing Restrictions: None
Instructions: Soft diet
Referrals:
Evens Smith MD [Family Provider, Internal Medicine] - in one to two weeks
Additional Discharge Medication Instructions: continue miralax daily but do not do suprep bowel prep as previously prescribed for surgery
Prescriptions:
Continued
cyanocobalamin (vitamin B-12) [Vitamin B-12] 1,000 MCG tablet
1,000 mcg PO HS
atorvastatin 10 MG tablet
10 mg PO HS
finasteride 5 MG tablet
5 mg PO HS
lisinopril 5 MG tablet
5 mg PO HS
latanoprost 0.005 % Drops
1 drp BOTH EYES HS
allopurinol 100 mg Tablet
100 mg PO HS
folic acid 800 mcg Tablet
0.8 mg PO HS
polyethylene glycol 3350 [Miralax] 17 gram Powder In Packet
17 g PO DAILY
Discharge Orders:
Discharge Patient (As Directed); Ordered 06/30/25
Ordered By: Shawn Gross
Discharge Date and Time
Print Language: MONEGASQUE
--- NOTE | 2025-06-30 13:43 | CM ---
Pt is DC today to home, no needs. IMM given and placed on chart
== END 2025-06-30 15:14 | disposition home or self-care (01) | DRG 390 ==
LOC: 4 EAST ACU 10:31
PROVIDERS: ADMITTING PHYSICIAN Family Medicine; CONSULT PHYSICIAN Surgery; EMERGENCY PHYSICIAN Emergency Medicine; FAMILY PHYSICIAN Internal Medicine
DX: K56.690 Other partial intestinal obstruction (principal); N40.0 Benign prostatic hyperplasia without lower urinary tract symptoms; N18.30 Chronic kidney disease, stage 3 unspecified; I12.9 Hypertensive chronic kidney disease with stage 1 through stage 4 chronic kidney disease, or unspecified chronic kidney disease; Z87.891 Personal history of nicotine dependence; D64.9 Anemia, unspecified; F41.9 Anxiety disorder, unspecified; Z80.42 Family history of malignant neoplasm of prostate; Z90.49 Acquired absence of other specified parts of digestive tract; Z79.899 Other long term (current) drug therapy
CPT/HCPCS: 71045; 74022; 80048; 80053; 83605; 83690; 83735; 85025; 85027; 93005; 96361; 96374; 96375; 96376; 99285

== ENCOUNTER 2025-07-02 11:15 | Inpatient (IN) | payer OTHER, SELFPAY ==
[2025-06-21 11:39] LABS: Hematocrit 44.4 % (39.0-52.0); Hemoglobin 15.5 g/dL (13.0-18.0); Mean Corp Hgb Conc. 34.9 g/dL (33.0-37.0); Mean Corpuscular Volume 93.1 fL (80.0-94.0); Platelet Count 182 10^3/uL (130-400); Red Cell Dist. Width 12.5 % (11.5-14.5)
[2025-06-21 12:03] LABS: ALT (SGPT) 47 U/L (0-50); AST (SGOT) 41 U/L (17-59); Albumin 4.5 g/dl (3.5-5.0); Alkaline Phosphatase 77 U/L (38-126); Blood Urea Nitrogen 19 mg/dl (9-20); Calcium 9.0 mg/dl (8.4-10.2); Carbon Dioxide 30 mmol/L (22-30); Chloride 105 mmol/L (98-107); Glucose 87 mg/dl (70-99); Potassium 4.4 mmol/L (3.5-5.1); Sodium 138 mmol/L (135-145); Total Protein 7.4 g/dl (6.3-8.2); eGFR 57.29
[2025-06-21 14:04] VITALS: BMI 25.9
[2025-07-02] VITALS (14 sets, daily range): BP systolic 119–142; BP diastolic 60–84; BMI 25.9
--- NOTE | 2025-07-02 09:20 | HP.FOC2 ---
Focused History & Physical
Chief Complaint
HPI:
Chief Complaint: Recurrent small bowel obstructions
HPI / Indication for Planned Procedure: Patient is a 75-year-old male known to our surgical service secondary to a history of multiple recurrent small bowel obstructions and known anastomotic stricture at previous site of small bowel resection as
well as ileocolonic anastomosis. Secondary to the severity and frequency of his recurrent obstructions patient presents today for scheduled operative management with anticipated laparoscopic assisted small bowel resection and possible ileocolonic
resection
Relevant Past Medical History: Other (Crohn's disease, history of small bowel obstruction, BPH, gout, hype hypercholesterolemia)
Relevant Social History: Negative
Relevant Family History: Negative
Relevant Past Surgical History: Positive for (Ablation for SVT, SBR/ileocecectomy for Crohn's 2011 with)
Review of Systems
Review of Pertinent Systems: All Systems Negative
Medication
See Medication form for detailed medications: Yes
Medication List (including Herbals & OTC):
cyanocobalamin (vitamin B-12) 1,000 mcg tablet (Vitamin B-12) 1,000 mcg PO HS Supplement 10/29/10
atorvastatin 10 mg tablet 10 mg PO HS High cholesterol 10/18/19
finasteride 5 mg tablet 5 mg PO HS prostate 10/18/19
lisinopril 5 mg tablet 5 mg PO HS Blood pressure 06/13/20
allopurinol 100 mg tablet 100 mg PO HS Gout 02/01/25
folic acid 800 mcg tablet 0.8 mg PO HS Supplement 02/01/25
latanoprost 0.005 % eye drops 1 drp BOTH EYES HS Eye Condition 02/01/25
polyethylene glycol 3350 17 gram oral powder packet (Miralax) 17 g PO DAILY Constipation 06/28/25
Medications Reviewed: Yes
Allergies and Reactions
Patient has Allergies: No
Noted Allergies and Reactions:
Allergy/AdvReac Type Severity Reaction Status Date / Time
No Known Drug Allergies Allergy Unknown Verified 06/28/25 03:30
Pertinent Physical Exam
All Other Systems: Negative
Head/Neck: Normal
Lungs: Normal
Heart: Normal
Abdomen: Other (Surgical scars)
Extremities: Normal
Neurological: Normal
Diagnosis / Assessment
75-year-old male presenting for surgical management of known anastomotic strictures that have been causing multiple recurrent high-grade partial small bowel obstructions
Plan / Procedure
Laparoscopic assisted small bowel resection and lyubov-ileocecectomy
Anesthesia/Sedation to be done by Anesthesia Provider: Yes
--- NOTE | 2025-07-02 09:23 | W.SUR.PREOP ---
Pre-Operative Surgical Note
-
I have examined this patient prior to the performance of the scheduled procedure.
The patient's condition is unchanged from the time of the current History and
Physical and the patient is able to undergo the scheduled procedure.
[2025-07-02] MEDS: TYLENOL 1000 MG PO (11:45)
[2025-07-02] MEDS: NORMOSOL-R/PLASMALYTE-A 1000 IV (11:46)
--- NOTE | 2025-07-02 17:30 | W.IMMPOSTOP ---
Addendum entered and electronically signed by Westley Sotelo MD 07/07/25 16:53:
#[id number]
Original Note:
Surgical Immed Post Op Note
-
Primary Surgeon: Westley Sotelo MD
Assisting Surgeon: Marlys Arcos NP
Mio HOLCOMB
Pre-op Diagnosis: History of multiple recurrent high-grade partial small bowel obstructions; small bowel anastomotic stricture; ileocolonic anastomotic stricture; history of Crohn's disease
Post-op Diagnosis: Small bowel anastomotic stricture; ileocolonic anastomotic stricture
Procedure Performed: Laparoscopic assisted small bowel resection; ileocolonic resection
Anesthesia Type: GETA +0.25% Marcaine with epinephrine
Specimen / Cultures: Small bowel anastomosis, ileocolonic anastomosis
Estimated Blood Loss: 50 mL
Complications: None immediate
Operative Findings: Moderate adhesions associated with small bowel anastomosis and ileocolonic anastomosis. Complete laparoscopic lysis and mobilization of distal ileal mesentery and ileocolonic anastomosis of Gerota's fascia, hepatic flexure and
duodenum. Upper midline mini laparotomy for extracorporeal completion of small bowel resection with anastomosis (NISHA 80 purple Albino technique) and resection of ileocolonic anastomosis with distal ilial to hepatic flexure transverse colon
[id number] stapled anastomosis NISHA purple 80). Small bowel anastomosis approximately 50 cm proximal to ileal colonic anastomosis. An additional 100 cm or longer of small bowel from proximal anastomosis to ligament of Treitz. No additional
intra-abdominal adhesions noted.
Anastomosis inspected on the back table after resection confirming 1 cm maximal diameter or even smaller aperture at anastomotic lumen.
No clear signs of active or significant chronic Crohn's disease.
The assistance of Mady Arcos NP was required due to the complexity of the procedure. During the procedure Mady Arcos NP assisted with trocar placement, managing the laparoscope and tissue retraction during laparoscopic portion of
procedure. Assistance with retraction and exposure for small bowel resection and anastomosis.
Mio HOLCOMB assisted with exposure and ileocolonic anastomosis as well as closure of the incision sites
I was present for the entirety of the operative procedure through closure
Updated patient's postoperatively in the surgical waiting area
[2025-07-02] MEDS: NSS 1000 IV (18:32)
[2025-07-02] MEDS: OFIRMEV 100 IV (18:36)
[2025-07-02] MEDS: DILAUDID PCA 30 IV (18:39)
[2025-07-02] MEDS: XALATAN OPHTHALMIC SOLUTION 1 DROP BOTH EYES (21:38)
--- NOTE | 2025-07-02 23:56 | PTCARENOTE ---
Pt arrived to [facility] @ 1999 from PACU. Pt AAOx3, drowsy. at bedside. IVF initiated per order, ngt attached to low intermittent suction. Dilaudid butt welder intact. VSS on 2L nc. Admission assessment completed. Pt oriented to room, call kc within
reach, bed locked and in lowest position. Reviewed plan of care with pt and spouse. All questions answered. Care ongoing.
[2025-07-03] MEDS: OFIRMEV 100 IV ×4 (00:10→18:22)
[2025-07-03] MEDS: NSS 1000 IV ×3 (02:30→16:58)
[2025-07-03] MEDS: CHLORASEPTIC/SORE THROAT SPRAY 2 SPRAY PO ×2 (02:59→05:36)
[2025-07-03 03:46] VITALS: BP 134/76
[2025-07-03 07:00] VITALS: BP 131/73
[2025-07-03 07:33] LABS: Hematocrit 36.7 % (39.0-52.0); Hemoglobin 12.9 g/dL (13.0-18.0); Mean Corp Hgb Conc. 35.1 g/dL (33.0-37.0); Mean Corpuscular Volume 91.3 fL (80.0-94.0); Platelet Count 159 10^3/uL (130-400); Red Cell Dist. Width 12.1 % (11.5-14.5)
[2025-07-03 07:56] LABS: Blood Urea Nitrogen 15 mg/dl (9-20); Calcium 7.5 mg/dl (8.4-10.2); Carbon Dioxide 24 mmol/L (22-30); Chloride 104 mmol/L (98-107); Estimated Creatinine Clearance 64 ml/min; Glucose 124 mg/dl (70-99); Potassium 4.7 mmol/L (3.5-5.1); Sodium 133 mmol/L (135-145); eGFR > 60.00
[2025-07-03] MEDS: NSS (PRESERVATIVE FREE) 10 ML IV (08:54)
[2025-07-03] MEDS: PROTONIX IV 40 MG IV (08:55)
[2025-07-03] MEDS: FLUSH (NSS) 1 FLUSH IV (08:57)
[2025-07-03 11:00] VITALS: BP 133/76
--- NOTE | 2025-07-03 11:14 | W.PN.GS2 ---
Today's Communication / Plan
-
NPO/NGT
void trial
c/w help desk internship
Assessment / Plan
-
75 yo male with a h/o Crohn's disease with prior ileocecectomy with recurrent SBO's secondary to anastomotic stricture presenting for scheduled operative management
POD #1 Lap assisted SBR/ileocolonic resection
AFVSS
Mild acute anemia present suspect secondary to hemodilution and expected intraoperative blood losses
Mild hyponatremia and hypocalcemia; will trend
Await bowel recovery
Plan:
Void trial today, follow on bladder scan protocol
Continue NPO/NGT
Continue IVF
Continue BEAD MAKER and Ofirmev
OOB/Ambulate
Start lovenox for VTE ppx, SCDs while in bed
PPI for GI ppx while NGT in place
Subjective Data
-
Date of Service: July 03, 2025
Pt seen and examined at bedside with Dr. Horner. Denies n/v. No passage of flatus as of yet. Passing small amounts of urine since law removed. Pain well controlled with BEAD MAKER
Objective Data
-
Intake and Output
07/02/25 07/03/25 07/04/25
06:59 06:59 06:59
Intake Total 1720 / 1720
Output Total 1924
Balance -205 / -205
Intake:
IV fluids (Total) 1430 / 1430
Nss 1,000 ml @ 130 mls/hr IV . 130 / 130
Q7H42M [facility] Rx#:[id number]
IV piggybacks 200 / 200
Amount instilled into GI Tube ( 90 / 90
Total)
[place] Sump 90 / 90
Output:
Gastrointestinal tube output ( 300 / 300
Total)
[place] Sump 300 / 300
Urine, Law 1400 / 1400
Urine, Voided 225 / 225
Vital Signs
Temp Pulse Resp BP Pulse Ox
98.0 F 78 16 131/73 97
07/03/25 07:00 07/03/25 07:00 07/03/25 08:00 07/03/25 07:00 07/03/25 08:00
Lab Results
07/03/25 07:13
07/03/25 07:13
Calcium 7.5 mg/dl (8.4-10.2) L 07/03/25 07:13
Total Bilirubin 0.7 mg/dl (0.2-1.3) 06/21/25 09:15
AST 41 U/L (17-59) 06/21/25 09:15
ALT 47 U/L (0-50) 06/21/25 09:15
Alkaline Phosphatase 77 U/L (38-126) 06/21/25 09:15
Total Protein 7.4 g/dl (6.3-8.2) 06/21/25 09:15
Albumin 4.5 g/dl (3.5-5.0) 06/21/25 09:15
Physical Exam
-
NAD AAOx3
ABD: soft, expected ttp, lap and upper midline incisions clear, dry, intact, nd
NGT with bilious drainage
[2025-07-03 15:00] VITALS: BP 130/79
[2025-07-03] MEDS: LOVENOX 40 MG SC (18:22)
[2025-07-03 20:00] VITALS: BP 137/80
[2025-07-03] MEDS: XALATAN OPHTHALMIC SOLUTION 1 DROP BOTH EYES (21:08)
[2025-07-03] MEDS: ANESTHETIC LOZENGE 1 LOZENGE PO (21:08)
[2025-07-03 23:49] VITALS: BP 126/77
[2025-07-04] VITALS (7 sets, daily range): BP systolic 124–138; BP diastolic 70–76; BMI 25.9
[2025-07-04] MEDS: NSS 1000 IV ×3 (00:28→17:26)
[2025-07-04] MEDS: OFIRMEV 100 IV ×2 (00:28→05:28)
[2025-07-04] MEDS: ANESTHETIC LOZENGE 1 LOZENGE PO (00:41)
[2025-07-04] MEDS: FLUSH (NSS) 1 FLUSH IV ×2 (05:29→08:06)
[2025-07-04 07:56] LABS: Blood Urea Nitrogen 14 mg/dl (9-20); Calcium 7.5 mg/dl (8.4-10.2); Carbon Dioxide 23 mmol/L (22-30); Chloride 105 mmol/L (98-107); Estimated Creatinine Clearance 69 ml/min; Glucose 88 mg/dl (70-99); Hematocrit 34.6 % (39.0-52.0); Hemoglobin 12.1 g/dL (13.0-18.0); Mean Corp Hgb Conc. 35.0 g/dL (33.0-37.0); Mean Corpuscular Volume 93.5 fL (80.0-94.0); Platelet Count 144 10^3/uL (130-400); Potassium 4.3 mmol/L (3.5-5.1); Red Cell Dist. Width 12.4 % (11.5-14.5); Sodium 133 mmol/L (135-145); eGFR > 60.00
[2025-07-04] MEDS: NSS (PRESERVATIVE FREE) 10 ML IV (08:05)
[2025-07-04] MEDS: PROTONIX IV 40 MG IV (08:05)
--- NOTE | 2025-07-04 09:57 | W.PN.GS2 ---
Today's Communication / Plan
-
NG removed, sips and chips.
Out of bed and ambulate
Assessment / Plan
-
75 yo male with a h/o Crohn's disease with prior ileocecectomy with recurrent SBO's secondary to anastomotic stricture presenting for scheduled operative management
POD #2 Lap assisted SBR/ileocolonic resection
AFVSS
Plan:
Okay for sips and chips
continue IVF
Continue MOSHGIACH and tylenol
OOB/Ambulate
Start lovenox for VTE ppx, SCDs while in bed
Time Spent
Total Time Spent with Patient (in minutes): 20
Subjective Data
-
Date of Service: July 04, 2025
Interval Events:
No acute events overnight. Slept well. Pain Controlled. Denies Nausea/Vomiting, +bowel function.
Objective Data
-
Intake and Output
07/03/25 07/04/25 07/05/25
06:59 06:59 06:59
Intake Total 1720 / 1720 2140 / 2140
Output Total 1925 / 1925 2720 / 2720
Balance -205 / -205 -580 / -580
Intake:
IV fluids (Total) 1430 / 1430 1560 / 1560
Nss 1,000 ml @ 130 mls/hr IV . 130 / 130
Q7H42M [facility] Rx#:[id number]
IV piggybacks 200 / 200 400 / 400
Amount instilled into GI Tube ( 90 / 90 180 / 180
Total)
[place] Sump 90 / 90 180 / 180
Output:
Gastrointestinal tube output ( 300 / 300 600 / 600
Total)
[place] Sump 300 / 300 600 / 600
Urine, Law 1400 / 1400
Urine, Voided 225 / 225 2119 / 212
Vital Signs
Temp Pulse Resp BP Pulse Ox
98.7 F 77 16 130/74 95
07/04/25 07:00 07/04/25 07:00 07/04/25 08:00 07/04/25 07:00 07/04/25 08:00
Lab Results
07/04/25 06:31
07/04/25 06:31
Calcium 7.5 mg/dl (8.4-10.2) L 07/04/25 06:31
Total Bilirubin 0.7 mg/dl (0.2-1.3) 06/21/25 09:15
AST 41 U/L (17-59) 06/21/25 09:15
ALT 47 U/L (0-50) 06/21/25 09:15
Alkaline Phosphatase 77 U/L (38-126) 06/21/25 09:15
Total Protein 7.4 g/dl (6.3-8.2) 06/21/25 09:15
Albumin 4.5 g/dl (3.5-5.0) 06/21/25 09:15
Physical Exam
-
GENERAL/NEURO: Awake, Alert, no distress
CHEST: Unlabored breathing on RA
ABDOMEN: Soft, Non-Tender, mildly distended. Incisions clean dry and intact. NG with gastric output, removed at bedside
Patient has a law catheter: No
Patient has a central line: No
[2025-07-04] MEDS: LOVENOX 40 MG SC (17:20)
[2025-07-04] MEDS: XALATAN OPHTHALMIC SOLUTION 1 DROP BOTH EYES (21:07)
[2025-07-04] MEDS: DILAUDID PCA 30 IV (23:18)
--- NOTE | 2025-07-04 23:50 | PTCARENOTE ---
New Dilaudid bag for pt's TIMBER SIZER OPERATOR obtained as previous bag's hang time reached the 48h limit. Dilaudid bag replaced, tubing replaced, and original bag of Dilaudid wasted with second RN.
[2025-07-05 03:02] VITALS: BP 129/65
[2025-07-05] MEDS: NSS 1000 IV ×2 (05:54→18:34)
[2025-07-05 07:31] LABS: Hematocrit 32.3 % (39.0-52.0); Hemoglobin 11.5 g/dL (13.0-18.0); Mean Corp Hgb Conc. 35.6 g/dL (33.0-37.0); Mean Corpuscular Volume 91.2 fL (80.0-94.0); Platelet Count 144 10^3/uL (130-400); Red Cell Dist. Width 12.1 % (11.5-14.5)
[2025-07-05 07:40] VITALS: BP 147/83
[2025-07-05 08:12] LABS: Blood Urea Nitrogen 11 mg/dl (9-20); Calcium 7.9 mg/dl (8.4-10.2); Carbon Dioxide 23 mmol/L (22-30); Chloride 102 mmol/L (98-107); Estimated Creatinine Clearance 76 ml/min; Glucose 83 mg/dl (70-99); Potassium 4.0 mmol/L (3.5-5.1); Sodium 132 mmol/L (135-145); eGFR > 60.00
[2025-07-05] MEDS: NSS (PRESERVATIVE FREE) 10 ML IV (08:16)
[2025-07-05] MEDS: PROTONIX IV 40 MG IV (08:16)
--- NOTE | 2025-07-05 10:26 | W.PN.GS2 ---
Today's Communication / Plan
-
clear liquids
dc BIOINFORMATICS ASSOCIATE
Assessment / Plan
-
75 yo male with a h/o Crohn's disease with prior ileocecectomy with recurrent SBO's secondary to anastomotic stricture presenting for scheduled operative management
POD #3 Lap assisted SBR/ileocolonic resection
AFVSS
Labs stable
Mild hyponatremia present
Plan:
Okay clears
continue IVF until good po intake
D/C BIOINFORMATICS ASSOCIATE, start prn tylenol, tramadol and dilaudid
OOB/Ambulate. PT consult placed
Resume home PO meds
C/W lovenox for VTE ppx, SCDs while in bed
Subjective Data
-
Date of Service: July 05, 2025
Pt seen and examined at bedside with Dr. Sotelo. Not passing much gas but denies n/v. Tolerating sips of clears. Pain present but well managed. Difficulty ambulating in hallway yesterday.
Objective Data
-
Intake and Output
07/04/25 07/05/25 07/06/25
06:59 06:59 06:59
Intake Total 2140 / 2140 960 / 960
Output Total 2720 / 2720 2605 / 2605 250 / 250
Balance -580 / -580 -1645 / -1645 -250 / -250
Intake:
IV fluids (Total) 1560 / 1560 960 / 960
IV piggybacks 400 / 400
Amount instilled into GI Tube ( 180 / 180
Total)
[place] Sump 180 / 180
Output:
Gastrointestinal tube output ( 600 / 600
Total)
[place] Sump 600 / 600
Urine, Voided 2120 / 2120 2605 / 2605 250 / 250
Vital Signs
Temp Pulse Resp BP Pulse Ox
98.5 F 73 16 147/83 95
07/05/25 07:40 07/05/25 07:40 07/05/25 07:40 07/05/25 07:40 07/05/25 09:29
Lab Results
07/05/25 06:43
07/05/25 06:43
Calcium 7.9 mg/dl (8.4-10.2) L 07/05/25 06:43
Total Bilirubin 0.7 mg/dl (0.2-1.3) 06/21/25 09:15
AST 41 U/L (17-59) 06/21/25 09:15
ALT 47 U/L (0-50) 06/21/25 09:15
Alkaline Phosphatase 77 U/L (38-126) 06/21/25 09:15
Total Protein 7.4 g/dl (6.3-8.2) 06/21/25 09:15
Albumin 4.5 g/dl (3.5-5.0) 06/21/25 09:15
Physical Exam
-
NAD
ABDOMEN: Soft, expecte TTP, mildly distended. Incisions clean dry and intact.
Patient has a law catheter: No
Patient has a central line: No
--- NOTE | 2025-07-05 10:43 | CM ---
economic development manager reviewed patient's chart and patient was admitted from home where he lives with his spouse, patient lives in a 2 story home, is independent with adl's and ambulation, no dme, patient drives, home with spouse when stable.
PCP: Dr. Israel Smith
Pharmacy: [facility] on [facility]
[2025-07-05 11:14] VITALS: BP 133/70
[2025-07-05 12:36] VITALS: BMI 25.9
[2025-07-05] MEDS: ULTRAM 50 MG PO (13:53)
[2025-07-05 13:59] VITALS: BP 147/81; BP 164/87; PULSE 71; O2SAT 95
[2025-07-05] MEDS: DILAUDID 0.5 MG IV (15:17)
[2025-07-05 15:20] VITALS: BP 138/74
[2025-07-05] MEDS: LOVENOX 40 MG SC (17:39)
[2025-07-05] MEDS: XALATAN OPHTHALMIC SOLUTION 1 DROP BOTH EYES (21:33)
[2025-07-05] MEDS: LIPITOR 10 MG PO (21:33)
[2025-07-05] MEDS: PROSCAR 5 MG PO (21:33)
[2025-07-05] MEDS: ZESTRIL 5 MG PO (21:33)
[2025-07-05] MEDS: ZYLOPRIM 100 MG PO (21:36)
[2025-07-05 23:20] VITALS: BP 150/85
[2025-07-06] MEDS: NSS 1000 IV ×2 (04:41→19:52)
[2025-07-06 07:25] VITALS: BP 134/73
--- NOTE | 2025-07-06 07:30 | W.PN.GS2 ---
Today's Communication / Plan
-
`
Assessment / Plan
-
75 yo male with a h/o Crohn's disease with prior ileocecectomy with recurrent SBO's secondary to anastomotic stricture x2 at small bowel and ileocolonic anastomosis presenting for scheduled operative management
POD #4 Lap assisted SBR & ileocolonic resection
AFVSS, overall doing well postop
Awaiting return of postoperative GI function
Mild hyponatremia present
Plan:
Encouraged to increase ambulation through halls and time OOBTC
Full liquids for comfort but cautioned to go slow until passing flatus regularly and/or bowel movement
continue IVF at reduced rate while awaiting further return of GI function
Multimodal pain control options
Continue home PO meds
C/W lovenox for VTE ppx, SCDs while in bed
Subjective Data
-
Date of Service: July 06, 2025
Patient seen and examined.
Abdominal/incisional pain adequately controlled
Ambulated halls once yesterday
Minimal flatus; no bowel movements
Tolerating clears without nausea, indigestion or reported significant bloating/distention
Objective Data
-
Intake and Output
07/05/25 07/06/25 07/07/25
06:59 06:59 06:59
Intake Total 960 / 960 1500 / 1500
Output Total 2605 / 2605 1440 / 1440
Balance -1645 / -1645 60 / 60
Intake:
Oral fluids 540 / 540
IV fluids (Total) 960 / 960 960 / 960
Output:
Urine, Voided 2605 / 2605 1440 / 1440
Other:
Number of approximated MODERATE 1
amounts of urine
Vital Signs
Temp Pulse Resp BP Pulse Ox
98.7 F 70 17 150/85 97
07/05/25 23:20 07/05/25 23:20 07/05/25 23:20 07/05/25 23:20 07/05/25 23:20
Calcium 7.9 mg/dl (8.4-10.2) L 07/05/25 06:43
Total Bilirubin 0.7 mg/dl (0.2-1.3) 06/21/25 09:15
AST 41 U/L (17-59) 06/21/25 09:15
ALT 47 U/L (0-50) 06/21/25 09:15
Alkaline Phosphatase 77 U/L (38-126) 06/21/25 09:15
Total Protein 7.4 g/dl (6.3-8.2) 06/21/25 09:15
Albumin 4.5 g/dl (3.5-5.0) 06/21/25 09:15
Physical Exam
-
NAD AAO x 3
ABD: Soft and only mildly distended with some tympany on percussion.
Mild tenderness to palpation at incision site and right hemiabdomen
Incisions with glue dressings. No erythema, no drainage, no open wounds, no significant ecchymosis
[2025-07-06] MEDS: NSS (PRESERVATIVE FREE) 10 ML IV (08:26)
[2025-07-06] MEDS: PROTONIX IV 40 MG IV (08:26)
[2025-07-06 08:46] LABS: Blood Urea Nitrogen 10 mg/dl (9-20); Calcium 8.3 mg/dl (8.4-10.2); Carbon Dioxide 26 mmol/L (22-30); Chloride 102 mmol/L (98-107); Estimated Creatinine Clearance 76 ml/min; Glucose 99 mg/dl (70-99); Potassium 4.1 mmol/L (3.5-5.1); Sodium 132 mmol/L (135-145); eGFR > 60.00
[2025-07-06 10:32] LABS: Hematocrit 33.7 % (39.0-52.0); Hemoglobin 12.1 g/dL (13.0-18.0); Mean Corp Hgb Conc. 35.9 g/dL (33.0-37.0); Mean Corpuscular Volume 91.8 fL (80.0-94.0); Platelet Count 167 10^3/uL (130-400); Red Cell Dist. Width 12.2 % (11.5-14.5)
--- NOTE | 2025-07-06 12:57 | CM ---
Chart reviewed and patient is ambulating hallway with walker, spouse at bed side.
Plan; Home with spouse when stable.
[2025-07-06] MEDS: DILAUDID 0.5 MG IV (13:11)
[2025-07-06 15:32] VITALS: BP 144/79
[2025-07-06] MEDS: LOVENOX 40 MG SC (17:23)
[2025-07-06] MEDS: NSS IV (21:05)
[2025-07-06] MEDS: LIPITOR 10 MG PO (22:14)
[2025-07-06] MEDS: PROSCAR 5 MG PO (22:14)
[2025-07-06] MEDS: ZESTRIL 5 MG PO (22:14)
[2025-07-06] MEDS: XALATAN OPHTHALMIC SOLUTION 1 DROP BOTH EYES (22:14)
[2025-07-06] MEDS: ZYLOPRIM 100 MG PO (22:15)
[2025-07-06 23:15] VITALS: BP 128/70
[2025-07-07] MEDS: ULTRAM 50 MG PO (02:56)
[2025-07-07 07:40] VITALS: BP 139/70
[2025-07-07] MEDS: NSS (PRESERVATIVE FREE) 10 ML IV (07:49)
[2025-07-07] MEDS: PROTONIX IV 40 MG IV (07:49)
--- NOTE | 2025-07-07 08:18 | W.PN.GS2 ---
Today's Communication / Plan
-
`
Assessment / Plan
-
75 yo male with a h/o Crohn's disease with prior ileocecectomy with recurrent SBO's secondary to anastomotic stricture x2 at small bowel and ileocolonic anastomosis presenting for scheduled operative management
POD #5 Lap assisted SBR & ileocolonic resection
AFVSS, overall doing well
BM overnight but still a bit distended awaiting more robust return of GI function
Mild hyponatremia present
Plan:
Encourage continued ambulation through halls/OOBTC
Maintain full liquid diet until improving GI function
stop IVFs
Multimodal pain control options - adjusted and added simethicone
Continue home PO meds
C/W lovenox for VTE ppx, SCDs while in bed
Subjective Data
-
Date of Service: July 07, 2025
pt seen and examined
3 loose BMs over night
tolerating liquids and some full liquids but generally does not have much appetite, no nausea; prefers to stay on liquid diet still
gas cramps at times
Objective Data
-
Intake and Output
07/06/25 07/07/25 07/08/25
06:59 06:59 06:59
Intake Total 1500 / 1500 1200 / 1200
Output Total 1440 / 1440 1115 / 1115 600 / 600
Balance 60 / 60 85 / 85 -600 / -600
Intake:
Oral fluids 540 / 540 480 / 480
IV fluids (Total) 960 / 960 720 / 720
Output:
Urine, Voided 1440 / 1440 1115 / 1115 600 / 600
Other:
Number of approximated MODERATE 1 1
amounts of urine
Vital Signs
Temp Pulse Resp BP Pulse Ox
98.1 F 74 17 128/70 95
07/06/25 23:15 07/06/25 23:15 07/06/25 23:15 07/06/25 23:15 07/06/25 23:15
Lab Results
07/06/25 07:45
07/06/25 07:45
Calcium 8.3 mg/dl (8.4-10.2) L 07/06/25 07:45
Total Bilirubin 0.7 mg/dl (0.2-1.3) 06/21/25 09:15
AST 41 U/L (17-59) 06/21/25 09:15
ALT 47 U/L (0-50) 06/21/25 09:15
Alkaline Phosphatase 77 U/L (38-126) 06/21/25 09:15
Total Protein 7.4 g/dl (6.3-8.2) 06/21/25 09:15
Albumin 4.5 g/dl (3.5-5.0) 06/21/25 09:15
Physical Exam
-
NAD AAOx3
ABD: softly distendened and tympanitic
mild TTP - right side and incisions
incisions with glue dressings
[2025-07-07] MEDS: NSS IV (08:49)
--- NOTE | 2025-07-07 09:14 | CM ---
Chart reviewed and case packer and sealer met with patient this am, plan is to home with spouse when stable, no needs.
Plan; Home with spouse when stable, no needs.
[2025-07-07 10:51] VITALS: BP 136/77; PULSE 77
[2025-07-07 15:15] VITALS: BP 119/68
[2025-07-07] MEDS: LOVENOX 40 MG SC (17:38)
[2025-07-07] MEDS: LIPITOR 10 MG PO (21:48)
[2025-07-07] MEDS: ZYLOPRIM 100 MG PO (21:48)
[2025-07-07] MEDS: PROSCAR 5 MG PO (21:48)
[2025-07-07] MEDS: XALATAN OPHTHALMIC SOLUTION 1 DROP BOTH EYES (21:48)
[2025-07-07] MEDS: ZESTRIL 5 MG PO (21:48)
[2025-07-07 23:15] VITALS: BP 123/69
[2025-07-08 07:25] VITALS: BP 127/77
--- NOTE | 2025-07-08 08:23 | CM ---
Home with spouse no needs
Plan; Home with spouse.
--- NOTE | 2025-07-08 09:38 | W.PN.GS2 ---
Today's Communication / Plan
-
`
Assessment / Plan
-
75 yo male with a h/o Crohn's disease with prior ileocecectomy with recurrent SBO's secondary to anastomotic stricture x2 at small bowel and ileocolonic anastomosis presenting for scheduled operative management
POD #6 Lap assisted SBR & ileocolonic resection
AFVSS, overall doing well
Plan: stable for d/c home, instructions reviewed
Subjective Data
-
Date of Service: July 08, 2025
pt seen and examined
feeling better each day
ambulating halls well
pain controlled only with occasional tylenol
last BM yesterday, +flatus
Objective Data
-
Intake and Output
07/07/25 07/08/25 07/09/25
06:59 06:59 06:59
Intake Total 1200 / 1200 960 / 960
Output Total 1115 / 1115 780 / 780
Balance 85 / 85 180 / 180
Intake:
Oral fluids 480 / 480 960 / 960
IV fluids (Total) 720 / 720
Output:
Urine, Voided 1115 / 1115 780 / 780
Other:
How many times incontinent 1
MODERATE amount urine
Number of approximated MODERATE 1
amounts of urine
Vital Signs
Temp Pulse Resp BP Pulse Ox
98.5 F 72 16 127/77 94
07/08/25 07:25 07/08/25 07:25 07/08/25 07:25 07/08/25 07:25 07/08/25 07:25
Lab Results
07/06/25 07:45
07/06/25 07:45
Calcium 8.3 mg/dl (8.4-10.2) L 07/06/25 07:45
Total Bilirubin 0.7 mg/dl (0.2-1.3) 06/21/25 09:15
AST 41 U/L (17-59) 06/21/25 09:15
ALT 47 U/L (0-50) 06/21/25 09:15
Alkaline Phosphatase 77 U/L (38-126) 06/21/25 09:15
Total Protein 7.4 g/dl (6.3-8.2) 06/21/25 09:15
Albumin 4.5 g/dl (3.5-5.0) 06/21/25 09:15
Physical Exam
-
NAD AAOx3
ABD: soft, no significant distention. minimal tympany
nontender
incisions with glue dressings
--- NOTE | 2025-07-08 09:39 | W.DS.TRANS ---
Addendum entered and electronically signed by MILEY Moore 07/09/25 12:58:
dictated #[id number]
Original Note:
DC Summary - Canal Driver
-
Discharge Instructions:
Sleep Apnea Risk Intermediate
Discharge Diagnosis/Procedures Laparoscopic assisted small bowel resection,
ileocolonic resection for management of
recurrent high-grade partial bowel obstructions
Diet Low Fiber,Supplements
Additional Diets smaller meals initially after surgery as
abdominal bloating as distention are common for
the first couple weeks
Activity No strenuous activity
Additional Activity Do not lift over 15 pounds for the next 4-6
weeks
Driving Restrictions As prior to admission
Bathing Restrictions OK to Shower
Wound Care Allow glue to flake off incisions over the next
2 weeks. Avoid soaking in tubs or pools for the
next 1 to 2 weeks. Okay to wash incisions
gently with soap and water, do not scrub or pick
off the glue.
Instructions:
Stand-Alone Forms:
Changes to Home Medications: No
Discharge Medications:
DC Medications w/original date entered in [facility]
cyanocobalamin (vitamin B-12) 1,000 mcg tablet (Vitamin B-12) 1,000 mcg PO HS Supplement 10/29/10
atorvastatin 10 mg tablet 10 mg PO HS High cholesterol 10/18/19
finasteride 5 mg tablet 5 mg PO HS prostate 10/18/19
lisinopril 5 mg tablet 5 mg PO HS Blood pressure 06/13/20
allopurinol 100 mg tablet 100 mg PO HS Gout 02/01/25
folic acid 800 mcg tablet 0.8 mg PO HS Supplement 02/01/25
latanoprost 0.005 % eye drops 1 drp BOTH EYES HS Eye Condition 02/01/25
polyethylene glycol 3350 17 gram oral powder packet (Miralax) 17 g PO DAILY Constipation 06/28/25
acetaminophen 500 mg tablet (Tylenol Extra Strength) 1,000 mg (2 x 500 mg) PO Q6HPRN PRN mild pain #1 tab 07/08/25
Home Medication Changes
Pending Results: Yes
Additional Pending Results:
pathology
[2025-07-08] MEDS: PROTONIX IV 40 MG IV (10:26)
[2025-07-08] MEDS: NSS (PRESERVATIVE FREE) 10 ML IV (10:26)
[2025-07-08] MEDS: MIRALAX 17 GRAMS PO (10:28)
[2025-07-08 11:15] VITALS: BP 137/79
== END 2025-07-08 12:01 | disposition home or self-care (01) | DRG 330 ==
LOC: 2 SOUTH 11:15
PROVIDERS: Registered Nurse; ADMITTING PHYSICIAN Surgery; FAMILY PHYSICIAN Internal Medicine
PROC: 0DB80ZZ Excision of Small Intestine, Open Approach (ICD-10-PCS; 2025-07-07)
DX: K56.50 Intestinal adhesions [bands], unspecified as to partial versus complete obstruction (principal); K50.90 Crohn's disease, unspecified, without complications; E78.00 Pure hypercholesterolemia, unspecified; N40.0 Benign prostatic hyperplasia without lower urinary tract symptoms
CPT/HCPCS: 36415; 80048; 80053; 85027; 86850; 86900; 86901; 88307; 93005; 97116; 97161; J1335